=== PATIENT | female | born 1935 | race Two or more races ===

== ENCOUNTER 2018-04-26 13:58 | Inpatient (IN) | payer MEDICARE, OTHER ==
[~2018-04-26] VITALS: Ht 144.8 cm; Wt 78.5 kg
--- NOTE | 2018-04-26 13:58 | NUR ---
BIB DAUGHTER W WORSENING COUGH AND CHEST CONGESTION,SEEN AT AN URGENT CARE 3 WEEKS AGO, TO ER BED 4, CHANGED TO GOWCharmaine, HOOKED TO MONITOR, AWAITING MD ALVA
--- NOTE | 2018-04-26 14:48 | NUR ---
DR BOURNE AT BEDSIDE
[2018-04-26 15:00] LABS: BASOPHILS % (AUTO) 0.1 % (0.0-2.0); HEMATOCRIT 33 % (33-45); HEMOGLOBIN 11.2 g/dL (11.5-14.8); LYMPHOCYTES # (AUTO) 0.5 /CMM (0.8-4.8); LYMPHOCYTES % (AUTO) 6.3 % (20.0-44.0); MEAN CORPUSCULAR HGB CONC 34 g/dl (31.0-36.0); MEAN CORPUSCULAR VOLUME 97 fL (82-100); MONOCYTES # (AUTO) 0.5 /CMM (0.1-1.30); MONOCYTES % (AUTO) 6.7 % (2.0-12.0); NEUTROPHILS # (AUTO) 6.6 /CMM (1.8-8.9); NEUTROPHILS % (AUTO) 85.9 % (43.0-81.0); PLATELET COUNT (AUTO) 142 /CMM (150-450); RED BLOOD CELL COUNT(AUTO) 3.38 MIL/uL (4.0-5.2); WHITE BLOOD COUNT (AUTO) 7.6 K/uL (4.3-11.0)
[2018-04-26] MEDS ORDERED: ALBUTEROL FS 2.5 MG/3 ML VIAL.NEB ONE (15:00)
[2018-04-26] MEDS ORDERED: ALBUTEROL FS 2.5 MG/3 ML VIAL.NEB NEB ONE (15:00)
[2018-04-26] MEDS ORDERED: IPRATROPIUM NEB FS 0.5 MG/2.5 ML AMPUL.NEB ONE (15:00)
[2018-04-26] MEDS ORDERED: IPRATROPIUM NEB FS 0.5 MG/2.5 ML AMPUL.NEB NEB ONE (15:00)
[2018-04-26 15:19] LABS: ALANINE AMINOTRANSFERASE 19 U/L (12-78); ALBUMIN 2.9 g/dL (3.4-5.0); ALKALINE PHOSPHATASE 85 U/L (46-116); ASPARTATE AMINOTRANSFERASE 25 U/L (15-37); B-TYPE NATRIURETIC PEPTIDE 1410 PG/ML (0-125); BILIRUBIN,DIRECT 0.2 mg/dL (0.0-0.2); BILIRUBIN,TOTAL 0.8 mg/dL (0.2-1.0); CALCIUM, SERUM 8.4 mg/dL (8.5-10.1); CARBON DIOXIDE 23 mmol/L (21-32); CHLORIDE 88 mmol/L (98-107); CREATININE 1.4 mg/dL (0.6-1.3); GLUCOSE 203 mg/dL (74-106); POTASSIUM 4.5 mmol/L (3.5-5.1); TOTAL PROTEIN, SERUM 6.7 g/dL (6.4-8.2); UREA NITROGEN, BLOOD 32 mg/dL (7-18)
[2018-04-26] MEDS ORDERED: AMLO5TAB9 PO (15:19)
[2018-04-26] MEDS ORDERED: CELE-85 PO (15:19)
[2018-04-26] MEDS ORDERED: TELM80TA9 PO ×2 (15:19→17:26)
[2018-04-26] MEDS ORDERED: LEVO50TA8 PO (15:19)
[2018-04-26] MEDS ORDERED: METO-356 PO (15:19)
[2018-04-26] MEDS ORDERED: FLUT1DIS3 IH (15:19)
[2018-04-26] MEDS ORDERED: SITA100T PO (15:19)
[2018-04-26] MEDS ORDERED: RANO500T3 PO (15:19)
[2018-04-26] MEDS ORDERED: PREG100C PO (15:19)
[2018-04-26] MEDS ORDERED: GLIM1TAB2 PO (15:19)
[2018-04-26] MEDS ORDERED: DEXL60CA3 PO (15:19)
[2018-04-26] MEDS ORDERED: FURO40TA5 PO ×2 (15:19→17:26)
[2018-04-26] MEDS ORDERED: ROSU10TA28 PO (15:19)
[2018-04-26] MEDS ORDERED: POTA8TAB8 PO (15:19)
[2018-04-26] MEDS ORDERED: MONT10TA22 PO (15:19)
[2018-04-26] MEDS ORDERED: HYDR-3026 PO (15:19)
[2018-04-26 15:20] LABS: SODIUM SERUM 120 mmol/L (136-145)
[2018-04-26 15:21] LABS: ABG BASE EXCESS -1.3 mmol/L; ABG OXYGEN SATURATION 80.8 % (92.0-98.5); ABG PCO2 42.5 mmHg (35.0-45.0); ABG PO2 46.6 mmHg (75.0-100.0); COHb 0.8 % (0.5-1.5); MetHb 0.4 % (0.0-1.5); O2Hb 79.8 % (94.0-97.0); SITE, ABG LEFT ARM; VENT MODE, BG nasal cannula
--- NOTE | 2018-04-26 16:12 | NUR ---
Called nursing solid waste facility supervisor and requested a tele bed for this pt.
--- NOTE | 2018-04-26 16:13 | NUR ---
Called the epic group for panel call and Dr. Ariza was paged
[2018-04-26] MEDS ORDERED: FUROSEMIDE 20 MG/2 ML VIAL ONE (16:28)
[2018-04-26 16:30] VITALS: BP 124/87
[2018-04-26] MEDS ORDERED: FUROSEMIDE 20 MG/2 ML VIAL IV ONE (16:30)
--- NOTE | 2018-04-26 16:42 | NUR ---
Pt is assigned to [facility]#:116-2, DX: CHF & hyponatremia, and accepting MD: Dr. Ariza.
[2018-04-26] MEDS ORDERED: FLUTICASONE/SALMETEROL DISKUS IH SCH (17:00)
[2018-04-26] MEDS ORDERED: hydrOXYzine PAMOATE 25 MG CAPSULE PO PRN (17:00)
--- NOTE | 2018-04-26 17:23 | NUR ---
REPORT GIVEN TO SOON RN OF TELEMETRY UNIT
[2018-04-26] MEDS ORDERED: TELM1TAB6 PO (17:26)
[2018-04-26] MEDS ORDERED: LORA10TA7 PO (17:26)
[2018-04-26] MEDS ORDERED: TIOT4MIS5 IH (17:26)
[2018-04-26] MEDS ORDERED: FERR325T23 PO (17:26)
--- NOTE | 2018-04-26 18:05 | NUR ---
RN NOTE PT ARRIVED FROM ER ON BED, AOX4, SOUTH KOREAN/TURKMEN SPEAKING, SOB, ON NC 2.0 L/MIN, DRY COUGH, IV SITE IN PLACE LEFT FOREARM, 22 G HL C/D/I, ON FOAMITE MIXER SR 70S, VS STABLE, CO PAIN FROM COUGH, ABLE TO AMBULATE. SAFETY MEASURES IN PLACE, CALL LIGHT WITHIN REACH. WILL ENDORSE TO PEDIATRIC NEPHROLOGIST NURSE FOR BENIGNO.
[2018-04-26] MEDS ORDERED: ZOLPIDEM TARTRATE 5 MG TABLET PO PRN (18:30)
[2018-04-26] MEDS ORDERED: MAG HYDROX/AL HYDROX/SIMETH 30 ML UDC PO PRN (18:30)
[2018-04-26] MEDS ORDERED: MAGNESIUM HYDROXIDE 30 ML UDC PO PRN (18:30)
[2018-04-26] MEDS ORDERED: Z GUARD REMEDY 2 OZ OINT TP PRN (18:30)
[2018-04-26] MEDS ORDERED: ONDANSETRON HCL/PF 4 MG/2 ML VIAL IVP PRN (18:30)
[2018-04-26] MEDS ORDERED: HYDROCODONE/APAP 5/325MG 1 EACH TABLET PO PRN (18:30)
[2018-04-26] MEDS ORDERED: ACETAMINOPHEN 325 MG TABLET PO PRN (18:30)
[2018-04-26] MEDS: PREGABALIN 100 MG CAPSULE PO SCH (18:34)
[2018-04-26] MEDS ORDERED: TIOTROPIUM BROMIDE IH SCH (19:30)
[2018-04-26] MEDS ORDERED: FUROSEMIDE 40 MG/4 ML VIAL IV SCH (19:30)
[2018-04-26] MEDS: methylPREDNISolone SOD SUCC 40 MG/ML VIAL IV SCH (19:55)
[2018-04-26 20:00] VITALS: BP 130/73
[2018-04-26] MEDS ORDERED: INSULIN REGULAR, HUMAN 100 UNIT/ML 3 ML VIAL SQ PRN ×2 (20:00→23:30)
[2018-04-26] MEDS ORDERED: *INSULIN REGULAR(HUMULIN R)HUM 100 UNIT/ML VIAL SQ PRN (20:00)
[2018-04-26] MEDS ORDERED: DEXTROSE 50%-WATER 50 ML DISP.SYRIN IV PRN ×2 (20:00→23:30)
[2018-04-26] MEDS: BLOOD SUGAR DIAGNOSTIC 1 EACH STRIP IN SCH ×2 (20:07→22:21)
--- NOTE | 2018-04-26 20:08 | NUR ---
RN NOTE PATIENT IS ALERT/ORIENTED X 4, BS 156, REFUSED INSULIN, EXPLAINED ALL RISKS AND BENEFITS, STILL REFUSED, MD IS AWARE, CHARGE NURSE IS AWARE
[2018-04-26] MEDS: IPRATROPIUM NEB FS 0.5 MG/2.5 ML AMPUL.NEB NEB SCH (21:52)
[2018-04-26] MEDS: MONTELUKAST SODIUM (10MG) 10 MG TABLET PO SCH (22:21)
[2018-04-27] VITALS: BP 122/61
[2018-04-27 04:00] VITALS: BP 132/79
--- NOTE | 2018-04-27 06:50 | NUR ---
RN NOTE PATIENT REMAINED STABLE DURING MY SHIFT, NO RESPIRATORY DISTRESS NOTED, CONTINUE TO MONITOR STRICT INTAKE AND OUTPUT, ALL SAFETY MEASURES TAKEN, PROVIDED BEDSIDE REPORT TO AM NURSE
--- NOTE | 2018-04-27 07:00 | NUR ---
NURSE NAVIGATOR OPENING NOTES RECEIVED PT LYING ON THE BED.ALERT/ORIENTED X3,BOTSWANAN SPEAKING PT.ON TELE HR IS 70'S WITH SR.ON 2L O2 VIA NC,TOLERATING WELL.NO SOB AND ACUTE DISTRESS NOTED.IV LINE IS ON LEFT FA G22,SITE IS CLEAN,DRY AND INTACT.NO INFILTRATION NOTED.SAFETY IS MAINTAINED AT ALL TIMES.BED IS IN LOW POSITION AND LOCKED.CALL LIGHT IS WITHIN REACH.WILL CONTINUE TO MONITOR THE PT CLOSELY.
[2018-04-27 07:08] LABS: HEMATOCRIT 32 % (33-45); HEMOGLOBIN 10.8 g/dL (11.5-14.8); LYMPHOCYTES # (AUTO) 0.5 /CMM (0.8-4.8); LYMPHOCYTES % (AUTO) 8.3 % (20.0-44.0); MEAN CORPUSCULAR HGB CONC 34 g/dl (31.0-36.0); MEAN CORPUSCULAR VOLUME 96 fL (82-100); MONOCYTES # (AUTO) 0.1 /CMM (0.1-1.30); MONOCYTES % (AUTO) 1.5 % (2.0-12.0); NEUTROPHILS # (AUTO) 5.3 /CMM (1.8-8.9); NEUTROPHILS % (AUTO) 90.2 % (43.0-81.0); PLATELET COUNT (AUTO) 149 /CMM (150-450); RED BLOOD CELL COUNT(AUTO) 3.34 MIL/uL (4.0-5.2); WHITE BLOOD COUNT (AUTO) 5.9 K/uL (4.3-11.0)
[2018-04-27 07:25] LABS: ALANINE AMINOTRANSFERASE 19 U/L (12-78); ALBUMIN 2.8 g/dL (3.4-5.0); ALKALINE PHOSPHATASE 83 U/L (46-116); ASPARTATE AMINOTRANSFERASE 25 U/L (15-37); BILIRUBIN,TOTAL 0.7 mg/dL (0.2-1.0); CALCIUM, SERUM 8.7 mg/dL (8.5-10.1); CARBON DIOXIDE 22 mmol/L (21-32); CHLORIDE 89 mmol/L (98-107); CREATININE 1.2 mg/dL (0.6-1.3); GLUCOSE 190 mg/dL (74-106); MAGNESIUM 1.8 mg/dL (1.8-2.4); PHOSPHORUS 4.8 mg/dL (2.5-4.9); POTASSIUM 4.4 mmol/L (3.5-5.1); SODIUM SERUM 124 mmol/L (136-145); TOTAL PROTEIN, SERUM 6.6 g/dL (6.4-8.2); UREA NITROGEN, BLOOD 31 mg/dL (7-18)
--- NOTE | 2018-04-27 07:40 | NUR ---
BASKETBALL COMMENTATOR NOTES BS CHECKED IT IS 193,REFUSED TO TAKE INSULIN.
[2018-04-27] MEDS: BLOOD SUGAR DIAGNOSTIC 1 EACH STRIP IN SCH ×4 (07:50→21:19)
[2018-04-27 07:53] LABS: CHOLESTEROL 120 mg/dL (<200); HDL CHOLESTEROL 57 mg/dL (40-60); LDL 53 mg/dL (0-99); THYROID STIMULATING HORMONE 0.784 uIU/mL (0.358-3.74); TRIGLYCERIDES 54 mg/dL (30-150)
[2018-04-27 08:00] VITALS: BP 135/72
[2018-04-27] MEDS: IPRATROPIUM NEB FS 0.5 MG/2.5 ML AMPUL.NEB NEB SCH ×3 (08:05→20:06)
[2018-04-27] MEDS: LEVOTHYROXINE SODIUM 50 MCG TABLET PO SCH (08:16)
[2018-04-27] MEDS: PANTOPRAZOLE 40 MG TABLET.DR PO SCH (08:16)
[2018-04-27] MEDS: METOPROLOL SUCCINATE 25 MG TAB.SR.24H PO SCH (08:46)
[2018-04-27] MEDS: GLIMEPIRIDE 1 MG TABLET PO SCH (08:46)
[2018-04-27] MEDS: LINAGLIPTIN 5 MG TABLET PO SCH (08:47)
[2018-04-27] MEDS: methylPREDNISolone SOD SUCC 40 MG/ML VIAL IV SCH ×3 (08:47→17:19)
[2018-04-27] MEDS: AMLODIPINE BESYLATE 5 MG TABLET PO SCH (08:47)
[2018-04-27] MEDS: PREGABALIN 100 MG CAPSULE PO SCH ×2 (08:47→17:19)
[2018-04-27] MEDS ORDERED: FLUTICASONE/VILANTEROL 1 EACH BLST.W.DEV IH SCH (09:00)
[2018-04-27] MEDS ORDERED: ENOXAPARIN SODIUM 40 MG/0.4 ML DISP.SYRIN SQ SCH (09:00)
[2018-04-27] MEDS ORDERED: Medication Not On Formulary EA (Sitagliptin Phosphate (Januvia) 100 MG) PO SCH (09:00)
[2018-04-27] MEDS ORDERED: PANTOPRAZOLE 40 MG TABLET.DR PO SCH (09:00)
[2018-04-27] MEDS ORDERED: LEVALBUTEROL HCL NEB 1.25 MG/0.5 ML VIAL.NEB IH SCH (09:00)
[2018-04-27] MEDS: ASPIRIN 81 MG TAB.CHEW PO SCH (09:28)
[2018-04-27] MEDS: FUROSEMIDE 40 MG/4 ML VIAL IV SCH ×3 (09:29→17:19)
[2018-04-27] MEDS: ENOXAPARIN SODIUM 30 MG/0.3 ML DISP.SYRIN SQ SCH (09:39)
[2018-04-27 09:57] LABS: IRON, SERUM 19 ug/dl (50-175); TOTAL IRON BINDING CAPACITY 198 ug/dl (250-450)
[2018-04-27 10:26] LABS: CHOLESTEROL 122 mg/dL (<200); FERRITIN 757 ng/mL (8-388); HDL CHOLESTEROL 56 mg/dL (40-60); LDL 53 mg/dL (0-99); THYROID STIMULATING HORMONE 0.725 uIU/mL (0.358-3.74); TRIGLYCERIDES 55 mg/dL (30-150)
[2018-04-27] MEDS: ACETYLCYSTEINE 10% SOLN 400 MG/4 ML VIAL NEB SCH ×2 (11:21→16:08)
[2018-04-27 12:00] VITALS: BP 126/68
[2018-04-27] MEDS: ALBUTEROL FS 2.5 MG/3 ML VIAL.NEB NEB SCH ×2 (13:38→20:06)
[2018-04-27] MEDS: SOD FERRIC GLUC 125 MG in IV NS 0.9% 100 ML IV SCH (14:51)
[2018-04-27] MEDS ORDERED: ALBUTEROL FS 2.5 MG/3 ML VIAL.NEB NEB SCH (15:30)
[2018-04-27 16:00] VITALS: BP 133/62
--- NOTE | 2018-04-27 18:43 | NUR ---
ELECTION JUDGE CLOSING NOTES PT IS LYING ON BED.ALERT/ORIENTED X4.TOLERATING WELL ON 2L O2 VIA NC.RESPIRATION IS EVEN AND NONLABORED.ENDORSED TO DRIVERS LICENSE EXAMINER RN FOR BENIGNO.
[2018-04-27 20:00] VITALS: BP 160/89
[2018-04-27] MEDS ORDERED: Rosuvastatin Calcium 10 MG PO SCH (20:00)
[2018-04-27] MEDS: LOSARTAN POTASSIUM 50 MG TABLET PO SCH (20:44)
[2018-04-27] MEDS: MONTELUKAST SODIUM (10MG) 10 MG TABLET PO SCH (21:19)
--- NOTE | 2018-04-27 22:00 | NUR ---
RN NOTE PATIENT IS ALERT/ORIENTED X4, BS 268, REFUSED INSULIN, EXPLAINED ALL RISKS AND BENEFITS, STILL REFUSED, MD IS AWARE, CHARGE NURSE IS AWARE
[2018-04-28] VITALS: BP 145/75
[2018-04-28] MEDS: ACETYLCYSTEINE 10% SOLN 400 MG/4 ML VIAL NEB SCH ×3 (00:09→13:16)
[2018-04-28] MEDS: ALBUTEROL FS 2.5 MG/3 ML VIAL.NEB NEB SCH ×3 (00:12→13:16)
[2018-04-28] MEDS: IPRATROPIUM NEB FS 0.5 MG/2.5 ML AMPUL.NEB NEB SCH ×3 (00:12→13:16)
[2018-04-28 04:00] VITALS: BP 129/65
[2018-04-28 05:56] LABS: ALANINE AMINOTRANSFERASE 21 U/L (12-78); ALBUMIN 2.8 g/dL (3.4-5.0); ALKALINE PHOSPHATASE 75 U/L (46-116); ASPARTATE AMINOTRANSFERASE 26 U/L (15-37); BILIRUBIN,TOTAL 0.5 mg/dL (0.2-1.0); CALCIUM, SERUM 8.5 mg/dL (8.5-10.1); CARBON DIOXIDE 26 mmol/L (21-32); CHLORIDE 92 mmol/L (98-107); CREATININE 1.3 mg/dL (0.6-1.3); GLUCOSE 246 mg/dL (74-106); MAGNESIUM 1.6 mg/dL (1.8-2.4); PHOSPHORUS 3.8 mg/dL (2.5-4.9); POTASSIUM 3.3 mmol/L (3.5-5.1); SODIUM SERUM 130 mmol/L (136-145); TOTAL PROTEIN, SERUM 6.2 g/dL (6.4-8.2); UREA NITROGEN, BLOOD 37 mg/dL (7-18)
[2018-04-28 06:37] LABS: HEMATOCRIT 30 % (33-45); HEMOGLOBIN 10.1 g/dL (11.5-14.8); LYMPHOCYTES # (AUTO) 0.7 /CMM (0.8-4.8); LYMPHOCYTES % (AUTO) 7.7 % (20.0-44.0); MEAN CORPUSCULAR HGB CONC 34 g/dl (31.0-36.0); MEAN CORPUSCULAR VOLUME 96 fL (82-100); MONOCYTES # (AUTO) 0.7 /CMM (0.1-1.30); MONOCYTES % (AUTO) 7.1 % (2.0-12.0); NEUTROPHILS % (AUTO) 85.2 % (43.0-81.0); PLATELET COUNT (AUTO) 176 /CMM (150-450); WHITE BLOOD COUNT (AUTO) 9.4 K/uL (4.3-11.0)
--- NOTE | 2018-04-28 06:46 | NUR ---
RN NOTE PATIENT REMAINED STABLE DURING PAINTER HELPER SIGN, NO RESPIRATORY DISTRESS NOTED, ALL SAFETY MEASURES TAKEN, WILL PROVIDE BEDSIDE REPORT TO AM SHIFT
--- NOTE | 2018-04-28 07:30 | NUR ---
PATIENT RECEIVED IN BED ALERT NO DISTRESS NOTED , PT DENIES CHEST PAIN SKIN WARM AND DRY , TELE MONITOR SR ,VITAL SIGNS STABLE C/O SEE FLOW SHEET , BLOOD SUGSR CHECK 229 MG/DL PT REFUSED SQ INSULIN ,SR X2 UP CALL LIGHT WITH IN REACH
[2018-04-28 08:00] VITALS: BP 128/61
--- NOTE | 2018-04-28 08:00 | NUR ---
RECEIVED PATIENT IN BED BREATHING WITH MILD SOB OXYGEN 3LITER N/C ON SATURATION 98% PATIENT DENIES CHEST PAIN HEPLOCK TO LEFT FORE ARM SECURED AND FLUSHED GOOD , PT IS UP WITH MINIAL ASSIST TO BATH ROOM SR X2 UP CALL LIGHT WITH REACH
[2018-04-28] MEDS: PANTOPRAZOLE 40 MG TABLET.DR PO SCH (08:19)
[2018-04-28] MEDS: LEVOTHYROXINE SODIUM 50 MCG TABLET PO SCH ×2 (08:20→08:21)
[2018-04-28] MEDS: BLOOD SUGAR DIAGNOSTIC 1 EACH STRIP IN SCH ×2 (08:21→12:23)
[2018-04-28] MEDS: ASPIRIN 81 MG TAB.CHEW PO SCH (09:37)
[2018-04-28] MEDS: AMLODIPINE BESYLATE 5 MG TABLET PO SCH (09:38)
[2018-04-28] MEDS: PREGABALIN 100 MG CAPSULE PO SCH (09:38)
[2018-04-28] MEDS: GLIMEPIRIDE 1 MG TABLET PO SCH (09:38)
[2018-04-28] MEDS: LOSARTAN POTASSIUM 50 MG TABLET PO SCH (09:38)
[2018-04-28] MEDS: LINAGLIPTIN 5 MG TABLET PO SCH (09:38)
[2018-04-28] MEDS: methylPREDNISolone SOD SUCC 40 MG/ML VIAL IV SCH (09:39)
[2018-04-28] MEDS: METOPROLOL SUCCINATE 25 MG TAB.SR.24H PO SCH (09:39)
[2018-04-28] MEDS: ENOXAPARIN SODIUM 30 MG/0.3 ML DISP.SYRIN SQ SCH (09:40)
[2018-04-28] MEDS ORDERED: POTASSIUM CHLORIDE 20 MEQ TAB.PRT.SR PO SCH (10:30)
[2018-04-28] MEDS: POTASSIUM CHLORIDE 20 MEQ TAB.PRT.SR PO SCH ×2 (11:06→12:15)
[2018-04-28] MEDS: Magnesium 1GM/D5W 100ML PREMIX 100 ML IV SCH ×2 (11:07→12:16)
--- NOTE | 2018-04-28 11:26 | NUR ---
CHARGE NOTES TRANSFER TO MED SURG PER DR. MATTA
[2018-04-28 12:00] VITALS: BP 126/55
--- NOTE | 2018-04-28 12:24 | NUR ---
FSBS 209MG/DL PT REFUSED INSULIN DOSE
[2018-04-28] MEDS ORDERED: K PHOS NEUTRAL 250 MG TABLET PO ONE (13:00)
[2018-04-28] MEDS: SOD FERRIC GLUC 125 MG in IV NS 0.9% 100 ML IV SCH (14:00)
[2018-04-28] MEDS ORDERED: LEVO500T75 PO (15:18)
[2018-04-28 16:00] VITALS: BP 127/55
--- NOTE | 2018-04-28 16:53 | NUR ---
PT IS DISCHARGED HOME
[2018-04-29] MEDS ORDERED: predniSONE 20 MG TABLET PO SCH (09:00)
== END 2018-04-28 16:35 | disposition home or self-care (01) | DRG 291 ==
LOC: ER 14:09 → TELE1 16:45 → MEDSG1 04-28 11:05
PROVIDERS: ADMIT Internal Medicine
DX: I11.0 Hypertensive heart disease with heart failure (principal); I50.31 Acute diastolic (congestive) heart failure; J96.01 Acute respiratory failure with hypoxia; E87.1 Hypo-osmolality and hyponatremia; N17.9 Acute kidney failure, unspecified; J44.0 Chronic obstructive pulmonary disease with (acute) lower respiratory infection; J44.1 Chronic obstructive pulmonary disease with (acute) exacerbation; J20.9 Acute bronchitis, unspecified; E66.9 Obesity, unspecified; E11.9 Type 2 diabetes mellitus without complications; D64.9 Anemia, unspecified; Z79.51 Long term (current) use of inhaled steroids; Z79.899 Other long term (current) drug therapy
CPT/HCPCS: 36415; 36600; 71045-TC; 80048-TC; 80053-TC; 80061-TC; 80076-TC; 82728-TC; 82962-TC; 83540-TC; 83735-TC; 83880; 84100-TC; 84439-TC; 84443-TC; 84484-TC; 85025-TC; 87081-TC; 93307-TC; 94799-TC; G0378; J1650; J1815; J1940; J2916; J2920; J3475; J7030; Q0177

== ENCOUNTER 2022-07-26 09:10 | Emergency (ER) | payer MEDICARE, OTHER ==
[~2022-07-26] VITALS: Ht 152.4 cm; Wt 68.0 kg
[~2022-07-26 09:10] MED LIST: AMLO-212 PO; CELE-85 PO; DEXL60CA3 PO; FERR325T23 PO; FLUT1DIS3 IH; FURO40TA5 PO; GLIM1TAB18 PO; HYDR-500 PO; LEVO500T23 PO; LEVO50TA8 PO; LORA10TA7 PO; METO25TA4 PO; MONT10TA22 PO; POTA8TAB8 PO; PREG100C PO; RANO500T3 PO; ROSU10TA29 PO; SITA100T PO; TELM1TAB6 PO; TELM80TA9 PO; TIOT4MIS5 IH
--- NOTE | 2022-07-26 09:26 | NUR ---
BIB FROM HOME FOR RLQ ABD PAIN SINCE YESTERDAY. A/O X 3, ABLE TO MAKE NEEDS KNOWN, ANGOLAN SPEAKING, TOLERATING WELL ON ROOM AIR. LAST BM YESTERDAY.
--- NOTE | 2022-07-26 09:35 | NUR ---
BLOOD SAMPLES OBTAINED
[2022-07-26] MEDS ORDERED: MORPHINE SULFATE INJ 2 MG/ML DISP.SYRIN ONE (09:58)
[2022-07-26] MEDS ORDERED: MORPHINE SULFATE INJ 2 MG/ML DISP.SYRIN IV ONE (10:00)
[2022-07-26] MEDS ORDERED: ACETAMINOPHEN ES 500 MG TABLET ONE ×2 (10:41→10:43)
[2022-07-26 10:57] LABS: BASOPHILS % (AUTO) 0.4 % (0.0-2.0); EOSINOPHILS % (AUTO) 6.1 % (0.0-6.0); HEMATOCRIT 33 % (33-45); HEMOGLOBIN 11.1 g/dL (11.5-14.8); LYMPHOCYTES # (AUTO) 1.6 K/uL (0.8-4.8); MEAN CORPUSCULAR HGB CONC 33 g/dl (31.0-36.0); MEAN CORPUSCULAR VOLUME 98 fL (82-100); MONOCYTES # (AUTO) 0.8 K/uL (0.1-1.30); MONOCYTES % (AUTO) 12.2 % (2.0-12.0); NEUTROPHILS # (AUTO) 3.5 K/uL (1.8-8.9); NEUTROPHILS % (AUTO) 55.3 % (43.0-81.0); PLATELET COUNT (AUTO) 158 K/uL (150-450); RED BLOOD CELL COUNT(AUTO) 3.42 MIL/uL (4.0-5.2); WHITE BLOOD COUNT (AUTO) 6.3 K/uL (4.3-11.0)
[2022-07-26] MEDS ORDERED: ACETAMINOPHEN ES 500 MG TABLET PO ONE (11:00)
[2022-07-26 11:10] LABS: CALCIUM, SERUM 8.8 mg/dL (8.5-10.1); CARBON DIOXIDE 26 mmol/L (21-32); CHLORIDE 101 mmol/L (98-107); GLUCOSE 124 mg/dL (74-106); POTASSIUM 4.1 mmol/L (3.5-5.1); SODIUM SERUM 132 mmol/L (136-145); UREA NITROGEN, BLOOD 18 mg/dL (7-18)
[2022-07-26 11:19] LABS: ALANINE AMINOTRANSFERASE 21 U/L (12-78); ALBUMIN 3.5 g/dL (3.4-5.0); ALKALINE PHOSPHATASE 80 U/L (46-116); ASPARTATE AMINOTRANSFERASE 24 U/L (15-37); BILIRUBIN,DIRECT 0.2 mg/dL (0.0-0.2); BILIRUBIN,TOTAL 0.5 mg/dL (0.2-1.0); LIPASE 63 U/L (73-393); TOTAL PROTEIN, SERUM 6.6 g/dL (6.4-8.2)
--- NOTE | 2022-07-26 11:51 | NUR ---
URINE SAMPLE OBTAINED
[2022-07-26] MEDS ORDERED: BISA-79 PO (11:54)
--- NOTE | 2022-07-26 12:05 | NUR ---
Patient discharged to home in stable condition. Written and verbal after care instructions given. Patient verbalizes understanding of instruction.IV removed. Catheter intact and site benign. Pressure and 4x4 applied to site. No bleeding noted.
[2022-07-26 12:06] VITALS: BP 151/62
[2022-07-26 12:12] LABS: BILIRUBIN,URINE Negative (NEGATIVE); COLOR,URINE YELLOW (YELLOW); LEUKOCYTE ESTERASE ,URINE Negative (NEGATIVE); NITRITE, URINE Negative (NEGATIVE); PROTEIN,URINE Negative (NEGATIVE); UGLUCOSE Negative (NEGATIVE); UROBILINOGEN,URINE 0.2 EU/dL (0.2)
== END 2022-07-26 12:06 | disposition home or self-care (01) ==
LOC: ER 09:20
DX: R10.84 Generalized abdominal pain (principal); I10 Essential (primary) hypertension; E11.9 Type 2 diabetes mellitus without complications; Z79.899 Other long term (current) drug therapy
CPT/HCPCS: 36415; 71045-TC; 80048-TC; 80076-TC; 83690-TC; 84484-TC; 85025-TC; 87086-TC; J2270

== ENCOUNTER 2022-07-31 19:02 | Emergency (ER) | payer MEDICARE, OTHER ==
[~2022-07-31] VITALS: Ht 144.8 cm; Wt 66.2 kg
[~2022-07-31 19:02] MED LIST changes: +BISA-79 PO
--- NOTE | 2022-07-31 19:20 | NUR ---
X-RAY TECH AT BEDSIDE
--- NOTE | 2022-07-31 20:12 | NUR ---
[id number] HOME C/O L SHOULDER AND BACK PAIN S/P FALLING OFF HER BED NOTED SKIN TEAR TO LFA.
[2022-07-31] MEDS ORDERED: TDAP [DIPH/PERTUSSIS/TET] 0.5 ML VIAL IM ONE ×2 (21:57→22:00)
--- NOTE | 2022-07-31 22:00 | NUR ---
SLING APPLIED TO L SHOULDER
--- NOTE | 2022-07-31 22:11 | NUR ---
Patient discharged to home in stable condition. Written and verbal after care instructions given. Patient verbalizes understanding of instruction.
[2022-07-31 22:13] VITALS: BP 135/70
== END 2022-07-31 22:10 | disposition home or self-care (01) ==
LOC: ER 19:04
DX: S42.292A Other displaced fracture of upper end of left humerus, initial encounter for closed fracture (principal); S51.012A Laceration without foreign body of left elbow, initial encounter; F03.90 Unspecified dementia, unspecified severity, without behavioral disturbance, psychotic disturbance, mood disturbance, and anxiety; I10 Essential (primary) hypertension; E11.9 Type 2 diabetes mellitus without complications; Z79.899 Other long term (current) drug therapy; W01.0XXA Fall on same level from slipping, tripping and stumbling without subsequent striking against object, initial encounter; Y93.89 Activity, other specified; Y92.89 Other specified places as the place of occurrence of the external cause; Y99.8 Other external cause status
CPT/HCPCS: 73030-TC; 73060-TC; 90715

== ENCOUNTER 2022-08-06 09:27 | Inpatient (IN) | payer MEDICARE, OTHER ==
[2022-08-05 21:00] VITALS: BP 151/63
[~2022-08-06] VITALS: Ht 152.4 cm; Wt 59.9 kg
--- NOTE | 2022-08-06 09:45 | NUR ---
MOVE SHEET SUBMITTED.
[2022-08-06] MEDS ORDERED: IV NS 0.9% 1,000 ML BAG IV ONE (10:00)
--- NOTE | 2022-08-06 10:36 | NUR ---
COVID swab obtained and sent to lab
--- NOTE | 2022-08-06 10:57 | NUR ---
Pt repositioned for comfort. Pt provided with blankets.
[2022-08-06 11:35] LABS: BASOPHILS % (AUTO) 0.2 % (0.0-2.0); EOSINOPHILS % (AUTO) 0.8 % (0.0-6.0); HEMATOCRIT 33 % (33-45); LYMPHOCYTES # (AUTO) 1.1 K/uL (0.8-4.8); LYMPHOCYTES % (AUTO) 6.7 % (20.0-44.0); MEAN CORPUSCULAR HGB CONC 31 g/dl (31.0-36.0); MEAN CORPUSCULAR VOLUME 108 fL (82-100); MONOCYTES # (AUTO) 1.2 K/uL (0.1-1.30); MONOCYTES % (AUTO) 7.5 % (2.0-12.0); NEUTROPHILS # (AUTO) 13.7 K/uL (1.8-8.9); NEUTROPHILS % (AUTO) 84.8 % (43.0-81.0); PLATELET COUNT (AUTO) 173 K/uL (150-450); RED BLOOD CELL COUNT(AUTO) 3.02 MIL/uL (4.0-5.2); WHITE BLOOD COUNT (AUTO) 16.2 K/uL (4.3-11.0)
--- NOTE | 2022-08-06 11:37 | NUR ---
PT REQUESTING FOOD. DR. WYNN MADE AWARE AND PT IS TO REMAIN NPO. PT MADE AWARE AND VERBALIZED UNDERSTANDING
--- NOTE | 2022-08-06 12:09 | NUR ---
LAB CALLED AND REPORTS THAT THEY WILL FOLLOW UP ON UNRESULTED BLOODWORK
--- NOTE | 2022-08-06 12:11 | NUR ---
LAB CALLED AND WILL SEND SOMEONE TO REDRAW LAB WORK
[2022-08-06] MEDS ORDERED: MAG HYDROX/AL HYDROX/SIMETH 30 ML UDC PO PRN (12:30)
[2022-08-06] MEDS ORDERED: ACETAMINOPHEN 325 MG TABLET PO PRN (12:30)
[2022-08-06] MEDS ORDERED: ONDANSETRON HCL/PF 4 MG/2 ML VIAL IVP PRN (12:30)
[2022-08-06] MEDS ORDERED: Z GUARD REMEDY 4 OZ OINT TP PRN (12:30)
[2022-08-06] MEDS ORDERED: MAGNESIUM HYDROXIDE 30 ML UDC PO PRN (12:30)
[2022-08-06 12:47] LABS: ALANINE AMINOTRANSFERASE 15 U/L (12-78); ALBUMIN 2.9 g/dL (3.4-5.0); ALKALINE PHOSPHATASE 95 U/L (46-116); ASPARTATE AMINOTRANSFERASE 17 U/L (15-37); BILIRUBIN,DIRECT 0.2 mg/dL (0.0-0.2); BILIRUBIN,TOTAL 0.6 mg/dL (0.2-1.0); CALCIUM, SERUM 8.8 mg/dL (8.5-10.1); CARBON DIOXIDE 16 mmol/L (21-32); CHLORIDE 109 mmol/L (98-107); CREATININE 1.1 mg/dL (0.6-1.3); GLUCOSE 138 mg/dL (74-106); POTASSIUM 4.6 mmol/L (3.5-5.1); SODIUM SERUM 138 mmol/L (136-145); TOTAL PROTEIN, SERUM 5.8 g/dL (6.4-8.2); UREA NITROGEN, BLOOD 30 mg/dL (7-18)
--- NOTE | 2022-08-06 13:00 | NUR ---
Pt has regular diet ordered, pt provided with meal tray and water
--- NOTE | 2022-08-06 13:22 | NUR ---
Ricardo mercado in [facility] - 08/06/22 at 1329 by MAE BED GIVEN 119-1
--- NOTE | 2022-08-06 13:29 | NUR ---
BED GIVEN 113-1
--- NOTE | 2022-08-06 13:39 | NUR ---
Report given to Sandra PARTIDA on the first floor
[2022-08-06 14:19] VITALS: BP 107/51
[2022-08-06] MEDS ORDERED: ICOS1CAP PO (15:55)
[2022-08-06] MEDS ORDERED: LINA290C PO (15:55)
[2022-08-06] MEDS ORDERED: FERR325T23 PO (15:59)
[2022-08-06] MEDS ORDERED: METO25TA4 PO (15:59)
[2022-08-06 17:00] VITALS: BP 134/69
[2022-08-06 17:49] LABS: THYROID STIMULATING HORMONE 2.568 uIU/mL (0.358-3.74)
--- NOTE | 2022-08-06 19:45 | NUR ---
RN OPENING NOTE PATIENT AWAKE IN BED; DAUGHTER AT BEDSIDE. A/OX4. NO S/S OF DISTRESS, BREATHING WITHOUT DIFFICULTY ON ROOM AIR. RAC #20 INTACT AND PATENT W/ NS 100ML/HR. TELE READS SR 82. SAFETY MEASURES IN PLACE: BED LOCKED AND AT LOWEST POSITION, RAILS UP X2, CALL QUACH WITHIN REACH. BED ALARM ON. WILL CONTINUE TO MONITOR PATIENT.
[2022-08-06] MEDS: IV NS 0.9% 1,000 ML IV PRN (19:54)
--- NOTE | 2022-08-06 19:57 | NUR ---
PARTS CLEANER NOTE PT ALERT AND ORIENTED X3-4. SOUTH KOREAN SPEAKING UNDERSTANDS SOME BOTSWANAN. PT ON TELE MONITOR SINUS RHYTM. PT HAS R IV INTACT, PATENT AND FLUSHING WELL. NO SIGNS OF PAIN OR DISCOMFORT NOTED AT THIS TIME. PT ON ROOM AIR. PT NOTED TO HAVE LEFT ARM SLING, LEFT HUMERAL FRATURE. GRANDSON AT BEDSIDE. ALL SAFETY MEASURS IN PLACE. CALL LIGHT WITHIN REACH. BED LOCKED AT LOWEST POSITION. SIDE RAILS UP X2. BED ALARM ON
--- NOTE | 2022-08-06 20:00 | NUR ---
VETERINARY TECHNOLOGY INSTRUCTOR NOTE PT ALERT AND ORIENTED X3-4. TAJIK SPEAKING UNDERSTANDS SOME MALAY. PT ON TELE MONITOR SINUS RHYTM. PT HAS R IV INTACT, PATENT AND FLUSHING WELL. NO SIGNS OF PAIN OR DISCOMFORT NOTED AT THIS TIME. PT ON ROOM AIR TOLERATING WELL ABOVE 93%. PT NOTED TO HAVE LEFT ARM SLING, LEFT HUMERAL FRACTURE. GRANDSON AND DAUGHTER AT BEDSIDE. ALL SAFETY MEASURES IN PLACE. CALL LIGHT WITHIN REACH. BED LOCKED AT LOWEST POSITION. SIDE RAILS UP X2. BED ALARM ON. ENDORSED TO BUSINESS QUALITY ASSURANCE ANALYST RN FOR CONTUITY OF CARE Addendum: 08/06/22 at 2001 by PACO DISLA RN PT NOT DISCHARGED. CHART ERROR. THIS IS PT CLOSING NOTE
--- NOTE | 2022-08-06 20:30 | NUR ---
RN NOTE PATIENT COMPLAINED OF PAIN 10/10 AT BACK. PATIENT'S DAUGHTER HAS POA AND STATED, "NO PAIN MEDS". AFTER DISCUSSING WITH DAUGHTER ALTERNATIVES, PATIENT AND PATIENT'S DAUGHTER AGREED TO TRAMADOL. ON-CALL, VANESA BUTLER. ORDER GIVEN FOR TRAMADOL 50MG Q6HR PRN PAIN. PATIENT STABLE; WILL CONTINUE TO MONITOR PATIENT.
[2022-08-06 21:00] VITALS: BP 150/71
[2022-08-06] MEDS ORDERED: TRAMADOL HCL 50 MG TABLET PO PRN (21:00)
[2022-08-06] MEDS: RANOLAZINE 500 MG TAB.ER.12H PO SCH (21:29)
[2022-08-07 01:53] VITALS: BP 150/71
[2022-08-07 05:33] VITALS: BP 143/80
[2022-08-07 06:28] LABS: BASOPHILS % (AUTO) 0.3 % (0.0-2.0); EOSINOPHILS % (AUTO) 3.1 % (0.0-6.0); HEMATOCRIT 29 % (33-45); HEMOGLOBIN 9.6 g/dL (11.5-14.8); LYMPHOCYTES # (AUTO) 1.7 K/uL (0.8-4.8); LYMPHOCYTES % (AUTO) 16.4 % (20.0-44.0); MEAN CORPUSCULAR HGB CONC 33 g/dl (31.0-36.0); MEAN CORPUSCULAR VOLUME 99 fL (82-100); MONOCYTES # (AUTO) 1.2 K/uL (0.1-1.30); MONOCYTES % (AUTO) 12.3 % (2.0-12.0); NEUTROPHILS # (AUTO) 6.8 K/uL (1.8-8.9); NEUTROPHILS % (AUTO) 67.9 % (43.0-81.0); PLATELET COUNT (AUTO) 189 K/uL (150-450); RED BLOOD CELL COUNT(AUTO) 2.91 MIL/uL (4.0-5.2); WHITE BLOOD COUNT (AUTO) 10.1 K/uL (4.3-11.0)
[2022-08-07] MEDS: IV NS 0.9% 1,000 ML IV PRN (06:29)
--- NOTE | 2022-08-07 06:35 | NUR ---
RN CLOSING NOTE PATIENT AWAKE IN BED. A/OX4. NO S/S OF DISTRESS, BREATHING WITHOUT DIFFICULTY ON ROOM AIR. RAC #20 INTACT AND PATENT W/ NS 100ML/HR. TELE READS SR 91. SAFETY MEASURES IN PLACE: BED LOCKED AND AT LOWEST POSITION, RAILS UP X2, CALL QUACH WITHIN REACH, BED ALARM ON. WILL ENDORSE TO NEXT SHIFT FOR BENIGNO.
[2022-08-07 06:39] LABS: ALANINE AMINOTRANSFERASE 16 U/L (12-78); ALBUMIN 2.7 g/dL (3.4-5.0); ALKALINE PHOSPHATASE 88 U/L (46-116); ASPARTATE AMINOTRANSFERASE 14 U/L (15-37); BILIRUBIN,TOTAL 0.6 mg/dL (0.2-1.0); CALCIUM, SERUM 8.8 mg/dL (8.5-10.1); CARBON DIOXIDE 20 mmol/L (21-32); CHLORIDE 108 mmol/L (98-107); CREATININE 0.8 mg/dL (0.6-1.3); GLUCOSE 126 mg/dL (74-106); MAGNESIUM 1.5 mg/dL (1.8-2.4); PHOSPHORUS 3.8 mg/dL (2.5-4.9); POTASSIUM 3.6 mmol/L (3.5-5.1); SODIUM SERUM 138 mmol/L (136-145); TOTAL PROTEIN, SERUM 5.6 g/dL (6.4-8.2); UREA NITROGEN, BLOOD 20 mg/dL (7-18)
--- NOTE | 2022-08-07 07:27 | NUR ---
METER READERS SUPERVISOR OPENING NOTE PT ALERT AND ORIENTED X3-4. BELARUSIAN SPEAKING UNDERSTANDS SOME ESTONIAN. PT ON TELE MONITOR SINUS RHYTM. PT HAS R IV INTACT, PATENT AND FLUSHING WELL. NO SIGNS OF PAIN OR DISCOMFORT NOTED AT THIS TIME. PT ON ROOM AIR TOLERATING WELL ABOVE 93%. PT NOTED TO HAVE LEFT HUMERAL FRACTURE. ALL SAFETY MEASURES IN PLACE. CALL LIGHT WITHIN REACH. BED LOCKED AT LOWEST POSITION. SIDE RAILS UP X2. BED ALARM ON.
[2022-08-07] MEDS ORDERED: LEVOTHYROXINE SODIUM 100 MCG TABLET PO SCH (07:30)
[2022-08-07 09:00] VITALS: BP 132/68
[2022-08-07] MEDS ORDERED: ATORVASTATIN 40 MG TABLET PO SCH (09:00)
[2022-08-07] MEDS ORDERED: LINAGLIPTIN 5 MG TABLET PO SCH (09:00)
[2022-08-07] MEDS ORDERED: GLIMEPIRIDE 1 MG TABLET PO SCH (09:00)
[2022-08-07] MEDS ORDERED: PANTOPRAZOLE 40 MG TABLET.DR PO SCH (09:00)
--- NOTE | 2022-08-07 09:15 | NUR ---
WOUND CARE CONSULT: PT'S DAUGHTER AT BEDSIDE REFUSED ASSESSMENT FOR PT. REVIEWED CHART, NURSING DOCUMENTATION AND PHOTOS WHICH INDICATE LEFT SHOULDER AND ARM DISCOLORATION, LEFT ELBOW SKIN TEAR, SACRAL DEEP TISSUE INJURY WITH GLUTEAL CREASE OPEN SKIN, ALL PRESENT ON ADMISSION. RECOMMENDATIONS MADE FOR SKIN PROTECTION. DISCUSSED WITH NURSING STAFF. IN AGREEMENT WITH PLAN OF CARE. Addendum: 08/07/22 at 0920 by RUFUS DONOVAN WNDNU ADMISSION PHOTOS ALSO SHOW DISCOLORATION TO LOWER EXTREMITIES.
[2022-08-07] MEDS: RANOLAZINE 500 MG TAB.ER.12H PO SCH (09:22)
[2022-08-07] MEDS ORDERED: Magnesium 1GM/D5W 100ML PREMIX 100 ML IV SCH ×2 (10:00→11:00)
--- NOTE | 2022-08-07 11:53 | NUR ---
varnisher note pt left in stable condition. pt alert and oriented x3. citizen of vanuatu speaking. removed tele monitor box and iv. went over discharge instructions with pt and pt daughter, medication list, health teachings.pt and pt agreed and verbalized understanding. all belongings with patient including jewelry and dentures.escorted out by nursing staff by wheelchair.picked up by daughter.
--- NOTE | 2022-08-09 13:48 | NUR ---
RN NOTES RECEIVED A CALL FROM LABORATORY FOR BLOOD CULTURE RESULT - GRAM POSITIVE COCCI. RELAYED TO DR. PRADO, PER HIS INSTRUCTION TO GIVE DAUGHTER A CALL. AND PT NEEDS TO BE TREATED WITH IV ATB AT LEAST FOR 2 DAYS. SPOKE WITH NOÉ - DAUGHTER, RELAYED MESSAGE ADN INSTRUCTION FROM DR. PRADO, DAUGHTER REFUSED HOSPITALIZATION AND INSTEAD REQUESTED TO HAVE A COPY E MAILED TO HER AND WILL JUST GET IV ATB THROUGH HER HOME HEALTH. SPOKE WITH CASE MANAGEMENT ABOUT THE SITUATION, PER CM, PROVIDE THE PT WITH THEIR MEDICAL RECORD NUMBER AND CALL MEDICAL RECORDS TO PROVIDE THEM A COPY OF THE BLOOD CULTURE AND HAVE IT E MAILED TO THEM PROVIDED A PHONE NUMBER OF MEDICAL RECORD - [phone]
== END 2022-08-07 11:41 | disposition home or self-care (01) | DRG 309 ==
LOC: ER 09:32 → TELE1 13:34
PROVIDERS: ADMIT Internal Medicine; ATTEND Internal Medicine
DX: I49.9 Cardiac arrhythmia, unspecified (principal); I50.32 Chronic diastolic (congestive) heart failure; N17.9 Acute kidney failure, unspecified; I11.0 Hypertensive heart disease with heart failure; I25.10 Atherosclerotic heart disease of native coronary artery without angina pectoris; F03.90 Unspecified dementia, unspecified severity, without behavioral disturbance, psychotic disturbance, mood disturbance, and anxiety; Z20.822 Contact with and (suspected) exposure to COVID-19; E78.5 Hyperlipidemia, unspecified; E11.9 Type 2 diabetes mellitus without complications; Z79.84 Long term (current) use of oral hypoglycemic drugs; Z79.51 Long term (current) use of inhaled steroids; Z79.899 Other long term (current) drug therapy; J44.9 Chronic obstructive pulmonary disease, unspecified; E03.9 Hypothyroidism, unspecified; D64.9 Anemia, unspecified; Z91.81 History of falling; S42.202D Unspecified fracture of upper end of left humerus, subsequent encounter for fracture with routine healing; W18.30XD Fall on same level, unspecified, subsequent encounter
CPT/HCPCS: 36415; 70450-TC; 71045-TC; 73030-TC; 73200-TC; 80048-TC; 80053-TC; 80061-TC; 80076-TC; 82728-TC; 82962-TC; 83540-TC; 83605-TC; 83735-TC; 84100-TC; 84439-TC; 84443-TC; 84484-TC; 85025-TC; 85730-TC; 86850-TC; 87040-TC; 93307-TC; 93971-TC; 97530-TC; C9803; G0378; J7030

== ENCOUNTER 2022-08-17 13:10 | Inpatient (IN) | payer MEDICARE, OTHER ==
[~2022-08-17] VITALS: Ht 152.4 cm; Wt 60.8 kg
[~2022-08-17 13:10] MED LIST changes: -BISA-79 PO; -FLUT1DIS3 IH; -FURO40TA5 PO; -HYDR-500 PO; +ICOS1CAP PO; -LEVO500T23 PO; +LINA290C PO; -MONT10TA22 PO; -POTA8TAB8 PO; -PREG100C PO; -TELM1TAB6 PO; -TIOT4MIS5 IH
[2022-08-17] MEDS ORDERED: IV NS 0.9% 500 ML BAG IV ONE (14:00)
--- NOTE | 2022-08-17 15:07 | NUR ---
COVID SWAB OBTAINED AND SENT TO LAB
[2022-08-17] MEDS ORDERED: METO10TA3 PO (15:14)
[2022-08-17] MEDS ORDERED: ASPI-1420 PO (15:14)
[2022-08-17] MEDS ORDERED: TRAM50TA2 PO (15:14)
[2022-08-17] MEDS ORDERED: POTA8TAB3 PO (15:14)
[2022-08-17] MEDS ORDERED: TIOT18CA3 IH (15:14)
[2022-08-17] MEDS ORDERED: FLUT1DIS3 INH (15:14)
--- NOTE | 2022-08-17 15:15 | NUR ---
PT AND FAMILY EDUCATED ON THE NEED FOR A URINE SAMPLE AND VERBALIZED UNDERSTANDING. PER PT AND FAMILY, PT CANNOT PROVIDE A URINE SAMPLE AT THIS TIME. PT AND FAMILY REFUSE STRAIGHT CATHETERIZATION FOR A URINE SAMPLE AT THIS TIME. NICA MADE AWARE
[2022-08-17 15:19] LABS: BASOPHILS % (AUTO) 0.3 % (0.0-2.0); EOSINOPHILS % (AUTO) 2.6 % (0.0-6.0); HEMATOCRIT 28 % (33-45); HEMOGLOBIN 9.1 g/dL (11.5-14.8); LYMPHOCYTES # (AUTO) 1.7 K/uL (0.8-4.8); LYMPHOCYTES % (AUTO) 17.7 % (20.0-44.0); MEAN CORPUSCULAR HGB CONC 33 g/dl (31.0-36.0); MEAN CORPUSCULAR VOLUME 98 fL (82-100); MONOCYTES # (AUTO) 1.1 K/uL (0.1-1.30); MONOCYTES % (AUTO) 11.5 % (2.0-12.0); NEUTROPHILS # (AUTO) 6.6 K/uL (1.8-8.9); NEUTROPHILS % (AUTO) 67.9 % (43.0-81.0); PLATELET COUNT (AUTO) 223 K/uL (150-450); RED BLOOD CELL COUNT(AUTO) 2.81 MIL/uL (4.0-5.2); WHITE BLOOD COUNT (AUTO) 9.8 K/uL (4.3-11.0)
[2022-08-17 15:32] LABS: CALCIUM, SERUM 9.1 mg/dL (8.5-10.1); CARBON DIOXIDE 25 mmol/L (21-32); CHLORIDE 103 mmol/L (98-107); CREATININE 1.2 mg/dL (0.6-1.3); GLUCOSE 80 mg/dL (74-106); POTASSIUM 4.4 mmol/L (3.5-5.1); SODIUM SERUM 139 mmol/L (136-145); UREA NITROGEN, BLOOD 30 mg/dL (7-18)
[2022-08-17 15:38] LABS: ALANINE AMINOTRANSFERASE 17 U/L (12-78); ALBUMIN 3.6 g/dL (3.4-5.0); ALKALINE PHOSPHATASE 113 U/L (46-116); ASPARTATE AMINOTRANSFERASE 16 U/L (15-37); BILIRUBIN,DIRECT 0.2 mg/dL (0.0-0.2); BILIRUBIN,TOTAL 0.7 mg/dL (0.2-1.0); TOTAL PROTEIN, SERUM 6.5 g/dL (6.4-8.2)
--- NOTE | 2022-08-17 15:39 | NUR ---
PT INCONTINENT OF STOOL. PT CLEANSED LINENS CHANGED
--- NOTE | 2022-08-17 15:40 | NUR ---
URINE SAMPLE OBTAINED AND SENT TO LAB
[2022-08-17 16:32] LABS: BILIRUBIN,URINE NEGATIVE (NEGATIVE); COLOR,URINE YELLOW (YELLOW); LEUKOCYTE ESTERASE ,URINE 2+ (NEGATIVE); NITRITE, URINE NEGATIVE (NEGATIVE); PH,URINE 6.5 (5.0-8.0); PROTEIN,URINE NEGATIVE (NEGATIVE); UGLUCOSE NEGATIVE (NEGATIVE); UROBILINOGEN,URINE 0.2 EU/dL (0.2)
[2022-08-17 16:44] LABS: BACTERIA,URINE 2+ /HPF (None Seen); RBC,URINE 0-2 /HPF (0-2); WBC,URINE 21-50 /HPF (0-3)
--- NOTE | 2022-08-17 17:25 | NUR ---
[facility] CALLED LOG SORTER PAGED.
[2022-08-17] MEDS ORDERED: VANCOMYCIN 1 GM in IV D5W 250 ML IV ONE (17:30)
[2022-08-17] MEDS ORDERED: CEFTRIAXONE 1GM BAG (ER ONLY) 1 GM/50 ML PIGGYBACK IV ONE (17:30)
[2022-08-17] MEDS ORDERED: CEFTRIAXONE 1 G VIAL ONE (17:31)
--- NOTE | 2022-08-17 17:39 | NUR ---
PHARMACY CALLED FOR PT MEDICATION
--- NOTE | 2022-08-17 17:42 | NUR ---
PT INCONTINENT OF URINE. PT CLEANSED AND CHANGED
[2022-08-17] MEDS ORDERED: TRAMADOL HCL 50 MG TABLET PO PRN (19:00)
[2022-08-17] MEDS ORDERED: MAGNESIUM HYDROXIDE 30 ML UDC PO PRN (19:00)
[2022-08-17] MEDS ORDERED: DEXTROSE 50%-WATER 50 ML DISP.SYRIN IV PRN (19:00)
[2022-08-17] MEDS ORDERED: ONDANSETRON HCL/PF 4 MG/2 ML VIAL IVP PRN (19:00)
[2022-08-17] MEDS ORDERED: ACETAMINOPHEN 325 MG TABLET PO PRN (19:00)
[2022-08-17] MEDS ORDERED: Z GUARD REMEDY 4 OZ OINT TP PRN (19:00)
[2022-08-17] MEDS ORDERED: MAG HYDROX/AL HYDROX/SIMETH 30 ML UDC PO PRN (19:00)
[2022-08-17] MEDS ORDERED: *INSULIN REGULAR(HUMULIN R)HUM 100 UNIT/ML VIAL SQ PRN (19:00)
--- NOTE | 2022-08-17 19:42 | NUR ---
REPORT GIVEN TO STEPHEN PARTIDA, [facility]
--- NOTE | 2022-08-17 19:58 | NUR ---
PT MOVED TO 112-2 [facility] VIA ACLS PROTOCOL
[2022-08-17 20:00] VITALS: BP 136/60
[2022-08-17] MEDS ORDERED: CEFTRIAXONE 1 G in IV D5W 50 ML IV SCH (20:00)
--- NOTE | 2022-08-17 20:30 | NUR ---
BOOM TRUCK DRIVER ADMITTING NOTE PATIENT WAS TRANSFERRED FROM ER TO [facility] RM 112 - 2 AT 2000H; PATIENT IS A/O X 3-4, ZIMBABWEAN SPEAKING BUT CAN UNDERSTAND LITTLE NIUEAN; WITH RELATIVE AT BEDSIDE; ABLE TO MAKE NEEDS KNOWN; STABLE ON ROOM AIR, BREATHING EVENLY AND NO S/S OF DISTRESS NOTED; HOOKED TO TELE MONITORING; WITH IV ACCESS AT RIGHT HAND G#22 RUNNING WITH VANCOMYCIN BUT NOTED TO BE INFILTRATED SO IV WAS PAUSED FOR THE MEANTIME; SKIN ASSESSMENT WAS DONE AND NOTED BRUISES ON MULTIPLE PARTS OF BODY PARTICULARLY ON LEFT ARM; PHOTOGRAPHED AND INSERTED INTO CHART; ORIENTED TO STAFF AND ROOM; SAFETY MEASURES IMPLEMENTED, BED LOCKED IN LOWEST POSITION, SIDE RAILS UP X 2, CALL LIGHT AND TABLE WITHIN REACH; WILL CONTINUE TO MONITOR THROUGHOUT SHIFT
--- NOTE | 2022-08-17 21:00 | NUR ---
COURTESY CAR DRIVER NOTE REINSERTED IV ON RIGHT HAND G#24, INTACT AND PATENT, FLUSHING WELL WITH NORMAL SALINE; VANCOMYCIN WAS CONSUMED; WILL CONTINUE TO MONITOR
[2022-08-17] MEDS: RANOLAZINE 500 MG TAB.ER.12H PO SCH (21:55)
[2022-08-17] MEDS: BLOOD SUGAR DIAGNOSTIC 1 EACH STRIP VI SCH (22:22)
--- NOTE | 2022-08-17 22:30 | NUR ---
HEALTH SERVICES MANAGER NOTE ACCUCHECK WAS DONE AND PATIENT'S BLOOD SUGAR WAS 169. 3 UNITS OF REGULAR INSULIN WAS TO BE GIVEN PER SLIDING SCALE BUT PATIENT REFUSED STATING THAT SHE JUST ATE. WILL CONTINUE TO MONITOR
[2022-08-18] VITALS: BP 114/82
--- NOTE | 2022-08-18 02:15 | NUR ---
RODEO CLOWN NOTE PATIENT HAS EPISODES OF BURPING NUMEROUS TIMES AND FELT UNCOMFORTABLE, CHARGE NURSE MADE AWARE. ADMINISTERED MAALOX PRN ORDERED.
--- NOTE | 2022-08-18 02:40 | NUR ---
SPIKE MACHINE HEATER NOTE PATIENT STILL FELT UNCOMFORTABLE, VERBALIZED WANTING TO VOMIT BUT UNABLE TO. INSISTED ON GETTING MEDICATION FOR NAUSEA AND VOMITING, ADMINISTERED ZOFRAN PRN ORDERED; PATIENT TOLERATED WELL AND BECAME RELAXED, DOZING INTERMITTENTLY
[2022-08-18 04:00] VITALS: BP 138/89
[2022-08-18 06:04] LABS: BASOPHILS % (AUTO) 0.3 % (0.0-2.0); EOSINOPHILS % (AUTO) 2.4 % (0.0-6.0); HEMATOCRIT 26 % (33-45); HEMOGLOBIN 8.6 g/dL (11.5-14.8); LYMPHOCYTES # (AUTO) 0.9 K/uL (0.8-4.8); LYMPHOCYTES % (AUTO) 10.7 % (20.0-44.0); MEAN CORPUSCULAR HGB CONC 34 g/dl (31.0-36.0); MEAN CORPUSCULAR VOLUME 96 fL (82-100); MONOCYTES # (AUTO) 0.4 K/uL (0.1-1.30); NEUTROPHILS % (AUTO) 81.6 % (43.0-81.0); PLATELET COUNT (AUTO) 200 K/uL (150-450); RED BLOOD CELL COUNT(AUTO) 2.65 MIL/uL (4.0-5.2); WHITE BLOOD COUNT (AUTO) 8.6 K/uL (4.3-11.0)
[2022-08-18 06:46] LABS: ALANINE AMINOTRANSFERASE 17 U/L (12-78); ALBUMIN 3.1 g/dL (3.4-5.0); ALKALINE PHOSPHATASE 103 U/L (46-116); ASPARTATE AMINOTRANSFERASE 14 U/L (15-37); BILIRUBIN,TOTAL 0.6 mg/dL (0.2-1.0); CALCIUM, SERUM 8.7 mg/dL (8.5-10.1); CARBON DIOXIDE 25 mmol/L (21-32); CHLORIDE 103 mmol/L (98-107); CREATININE 0.9 mg/dL (0.6-1.3); GLUCOSE 109 mg/dL (74-106); PHOSPHORUS 3.8 mg/dL (2.5-4.9); POTASSIUM 4.3 mmol/L (3.5-5.1); SODIUM SERUM 138 mmol/L (136-145); TOTAL PROTEIN, SERUM 5.8 g/dL (6.4-8.2); UREA NITROGEN, BLOOD 21 mg/dL (7-18)
--- NOTE | 2022-08-18 06:52 | NUR ---
PARK KEEPER CLOSING NOTE PATIENT IS A/O X 3-4, LAO SPEAKING BUT CAN UNDERSTAND LITTLE ALBANIAN; ABLE TO MAKE NEEDS KNOWN; STABLE ON ROOM AIR, BREATHING EVENLY AND NO S/S OF DISTRESS NOTED; HOOKED TO TELE MONITORING CURRENTLY READING SR 70S BPM; WITH IV ACCESS AT RIGHT HAND G#24, INTACT AND PATENT AND MIDLINE ACCESS AT DAVID G#20, INTACT AND FLUSHING WELL; ADMINISTERED MEDICATIONS PRESCRIBED; PATIENT'S NEEDS ATTENDED; MONITORED PATIENT ACCORDINGLY; SAFETY MEASURES IMPLEMENTED, BED LOCKED IN LOWEST POSITION, HEAD OF BED ELEVATED, SIDE RAILS UP X 2, CALL LIGHT AND TABLE WITHIN REACH; WILL ENDORSE TO AM NURSE FOR BENIGNO.
[2022-08-18 08:00] VITALS: BP 131/70
[2022-08-18] MEDS: LEVOTHYROXINE SODIUM 50 MCG TABLET PO SCH (08:35)
[2022-08-18] MEDS: METOCLOPRAMIDE HCL 10 MG TABLET PO SCH ×2 (08:36→16:35)
[2022-08-18] MEDS: PANTOPRAZOLE 40 MG TABLET.DR PO SCH ×2 (08:36→16:35)
[2022-08-18] MEDS: RANOLAZINE 500 MG TAB.ER.12H PO SCH ×2 (08:36→21:41)
[2022-08-18] MEDS: CELECOXIB 100 MG CAPSULE PO SCH ×2 (08:36→16:35)
[2022-08-18] MEDS: AMLODIPINE BESYLATE 5 MG TABLET PO SCH ×2 (08:36→16:35)
[2022-08-18] MEDS: FERROUS SULFATE (325 MG) 325 MG/TAB TABLET PO SCH ×2 (08:36→16:35)
[2022-08-18] MEDS: BLOOD SUGAR DIAGNOSTIC 1 EACH STRIP VI SCH ×4 (08:44→21:41)
[2022-08-18] MEDS: INSULIN REGULAR, HUMAN 100 UNIT/ML 3 ML VIAL SQ PRN ×3 (08:45→16:44)
[2022-08-18] MEDS ORDERED: FLUTICASONE/SALMETEROL 1 DISK IH SCH ×2 (09:00)
[2022-08-18] MEDS ORDERED: LORATADINE 10 MG TABLET PO SCH (09:00)
[2022-08-18] MEDS ORDERED: ATORVASTATIN 40 MG TABLET PO SCH (09:00)
[2022-08-18] MEDS ORDERED: Medication Not On Formulary EA (Potassium Chloride 8 MEQ) PO SCH (09:00)
[2022-08-18] MEDS ORDERED: METOPROLOL SUCCINATE 25 MG TAB.SR.24H PO SCH (09:00)
[2022-08-18] MEDS ORDERED: TIOTROPIUM BROMIDE 6 CAP/BOX CAP.W.DEV IH SCH ×2 (09:00)
[2022-08-18 12:00] VITALS: BP 125/56
[2022-08-18] MEDS ORDERED: IPRATROPIUM NEB FS 0.5 MG/2.5 ML AMPUL.NEB NEB SCH (13:30)
[2022-08-18] MEDS ORDERED: ALBUTEROL FS 2.5 MG/3 ML VIAL.NEB NEB SCH (13:30)
[2022-08-18 16:00] VITALS: BP 122/69
[2022-08-18] MEDS ORDERED: HOME MED MISCELLANEOUS PO SCH ×2 (17:00→18:00)
--- NOTE | 2022-08-18 17:53 | NUR ---
DAUGHTER BROUGHT PATIENT'S HOME MEDS - VASCEPA 10 GEL CAPSULES AND 5 CAPSULES OF LINZESS. MEDS GIVEN TO PHARMACY.
--- NOTE | 2022-08-18 18:30 | NUR ---
END OF SHIFT SUMMARY PATIENT IS A/O X3-4. MAINLY TOGOLESE SPEAKING. SR ON TELE. IV ACCESS ON R HAND AND DAVID ML, INTACT AND PATENT. PUREWICK IN PLACE, INCONTINENCE CARE PROVIDED. SAFETY MEASURES MAINTAINED. BED IN LOWEST POSITION, BRAKES LOCKED. SIDE RAILS UP X2. CALL LIGHT WITHIN REACH. WILL ENDORSE CONTINUITY OF CARE TO ONCOMING SHIFT.
[2022-08-18] MEDS ORDERED: ASPIRIN EC 81 MG TABLET.DR PO SCH (19:00)
--- NOTE | 2022-08-18 19:15 | NUR ---
GRANITE SANDBLASTER APPRENTICE opening note Received pt resting in bed, awake, A&Ox2, breathing even and unlabored, afebrile, KEANU ML, SL, no acute distress noted at this time, all safety measures are in place, call light with in reach, will continue to monitor.
[2022-08-18] MEDS ORDERED: BUDESONIDE RESPULE INH 0.5 MG/2 ML AMPUL.NEB IH SCH (19:30)
[2022-08-18 20:00] VITALS: BP 129/57
[2022-08-18] MEDS ORDERED: CEFTRIAXONE 1 G in IV D5W 50 ML IV SCH (20:00)
[2022-08-19] VITALS: BP 129/57
[2022-08-19 04:00] VITALS: BP 128/56
--- NOTE | 2022-08-19 06:16 | NUR ---
Pt pulled out ML at this time, and is refusing tele monitor x3, r/b explained x3, pt expressing anger towards bed stating " I want to go home I have a good bed, this bed not good for me" redirected pt back to bed and made comfortable as possible, pt stating she wants daughter to pick her up and take her home, calmed pt down and explained we will contact daughter in A.M shift, pt is back in bed at this time and is calm
--- NOTE | 2022-08-19 07:15 | NUR ---
Pt still non compliant, refusing tele monitor, pure wick, and refusing to get back in bed, pt sitting in chair at bed side, agitated, endorsed to AM nurse Mary PARTIDA and attempting to contact daughter at this time.
[2022-08-19] MEDS: BLOOD SUGAR DIAGNOSTIC 1 EACH STRIP VI SCH (07:30)
[2022-08-19] MEDS: LEVOTHYROXINE SODIUM 50 MCG TABLET PO SCH (07:30)
[2022-08-19] MEDS: PANTOPRAZOLE 40 MG TABLET.DR PO SCH (07:30)
--- NOTE | 2022-08-19 07:32 | NUR ---
RN NOTE PT VERY AGITATED, REFUSING TO STAY IN BED, PT REFUSING TELE MONITOR, PUREWICK AND TO TAKE ANY MEDICATION. DAUGHTER IBIS CALLED. DAUGHTER JUST ARRIVED AT BEDSIDE.
--- NOTE | 2022-08-19 07:44 | NUR ---
RN NOTE DAUGHTER STILL AT BEDSIDE, PT REFUSING TO COOPERATE. DR. JOANNA WALKER.
[2022-08-19] MEDS ORDERED: SULF1TAB48 PO (08:34)
--- NOTE | 2022-08-19 09:18 | NUR ---
RN NOTE PT LEFT, DISCHARGED BY DR. MARSHALL. DAUGHTER IBIS AT BEDSIDE TO DRIVE PT HOME. IV REMOVED ON RIGHT HAND, NO SIGNS OF BLEEDING. INSTRUCTION GIVEN TO DAUGHTER. PT WHEELCHAIR TO IBIS'S CAR SAFELY.
== END 2022-08-19 09:29 | disposition home or self-care (01) | DRG 640 ==
LOC: ER 13:12 → TELE1 19:17
PROVIDERS: ADMIT Internal Medicine; ATTEND Internal Medicine
PROC: 05H933Z Insertion of Infusion Device into Right Brachial Vein, Percutaneous Approach (ICD-10-PCS; principal; 2022-08-18)
DX: E86.0 Dehydration (principal); N39.0 Urinary tract infection, site not specified; G93.41 Metabolic encephalopathy; N17.0 Acute kidney failure with tubular necrosis; E03.9 Hypothyroidism, unspecified; E78.5 Hyperlipidemia, unspecified; Z79.82 Long term (current) use of aspirin; Z79.899 Other long term (current) drug therapy; Z79.890 Hormone replacement therapy; E88.09 Other disorders of plasma-protein metabolism, not elsewhere classified; E11.9 Type 2 diabetes mellitus without complications; I11.9 Hypertensive heart disease without heart failure; D64.9 Anemia, unspecified; I25.10 Atherosclerotic heart disease of native coronary artery without angina pectoris; Z88.0 Allergy status to penicillin; S42.309D Unspecified fracture of shaft of humerus, unspecified arm, subsequent encounter for fracture with routine healing; X58.XXXD Exposure to other specified factors, subsequent encounter; Z79.84 Long term (current) use of oral hypoglycemic drugs; Z79.51 Long term (current) use of inhaled steroids; E61.1 Iron deficiency; M84.48XD Pathological fracture, other site, subsequent encounter for fracture with routine healing; Z91.81 History of falling
CPT/HCPCS: 36410; 36415; 70450-TC; 71045-TC; 80048-TC; 80053-TC; 80076-TC; 81001; 82962-TC; 83735-TC; 83880; 84100-TC; 84484-TC; 85025-TC; 87040-TC; 87081-TC; 87086-TC; A4223; C9803; G0378; J0696; J1815; J2405; J3370; J7030; J7050; J7060; J8597

== ENCOUNTER 2022-08-30 08:33 | Inpatient (IN) | payer MEDICARE, OTHER ==
[~2022-08-30] VITALS: Ht 160 cm; Wt 62.1 kg
[~2022-08-30 08:33] MED LIST changes: +ASPI-1420 PO; +FLUT1DIS3 INH; +METO10TA3 PO; +POTA8TAB3 PO; +SULF1TAB48 PO; -TELM80TA9 PO; +TIOT18CA3 IH; +TRAM50TA2 PO
[2022-08-30] MEDS ORDERED: IV NS 0.9% 1,000 ML BAG IV ONE (09:00)
[2022-08-30] MEDS ORDERED: ONDANSETRON HCL/PF 4 MG/2 ML VIAL IVP ONE (09:00)
--- NOTE | 2022-08-30 09:00 | NUR ---
REceived pt 86 yrs female came from home by amanda c/o perping with nuasea and vomiting awake and alert
[2022-08-30] MEDS ORDERED: ONDANSETRON HCL/PF 4 MG/2 ML VIAL ONE (09:16)
--- NOTE | 2022-08-30 09:20 | NUR ---
See BY DR. OTT INSERTED ANGOCATHETER G 20 ON LT WRIST BLOOD DROW AND SENT TO LAB
[2022-08-30 09:35] LABS: BASOPHILS # (AUTO) 0.1 K/uL (0.0-0.2); BASOPHILS % (AUTO) 0.3 % (0.0-2.0); HEMATOCRIT 30 % (33-45); HEMOGLOBIN 9.8 g/dL (11.5-14.8); LYMPHOCYTES # (AUTO) 1.6 K/uL (0.8-4.8); LYMPHOCYTES % (AUTO) 10.1 % (20.0-44.0); MEAN CORPUSCULAR HGB CONC 32 g/dl (31.0-36.0); MEAN CORPUSCULAR VOLUME 98 fL (82-100); MONOCYTES # (AUTO) 1.7 K/uL (0.1-1.30); MONOCYTES % (AUTO) 10.4 % (2.0-12.0); NEUTROPHILS # (AUTO) 12.6 K/uL (1.8-8.9); NEUTROPHILS % (AUTO) 77.2 % (43.0-81.0); PLATELET COUNT (AUTO) 222 K/uL (150-450); RED BLOOD CELL COUNT(AUTO) 3.09 MIL/uL (4.0-5.2); WHITE BLOOD COUNT (AUTO) 16.3 K/uL (4.3-11.0)
[2022-08-30 09:50] LABS: ALANINE AMINOTRANSFERASE 19 U/L (12-78); ALBUMIN 3.6 g/dL (3.4-5.0); ALKALINE PHOSPHATASE 109 U/L (46-116); ASPARTATE AMINOTRANSFERASE 27 U/L (15-37); BILIRUBIN,DIRECT 0.2 mg/dL (0.0-0.2); BILIRUBIN,TOTAL 0.7 mg/dL (0.2-1.0); CALCIUM, SERUM 9.2 mg/dL (8.5-10.1); CARBON DIOXIDE 23 mmol/L (21-32); CHLORIDE 96 mmol/L (98-107); CREATININE 1.1 mg/dL (0.6-1.3); GLUCOSE 125 mg/dL (74-106); LIPASE 55 U/L (73-393); POTASSIUM 5.4 mmol/L (3.5-5.1); SODIUM SERUM 127 mmol/L (136-145); TOTAL PROTEIN, SERUM 6.6 g/dL (6.4-8.2); UREA NITROGEN, BLOOD 21 mg/dL (7-18)
--- NOTE | 2022-08-30 10:25 | NUR ---
TO CT SCAN
--- NOTE | 2022-08-30 11:00 | NUR ---
UA SENT TO LAB
--- NOTE | 2022-08-30 11:21 | NUR ---
MOVE SHEET SUBMITTED.
--- NOTE | 2022-08-30 11:32 | NUR ---
COVID SWAB SENT TO LAB
[2022-08-30 12:16] LABS: BILIRUBIN,URINE NEGATIVE (NEGATIVE); COLOR,URINE YELLOW (YELLOW); LEUKOCYTE ESTERASE ,URINE NEGATIVE (NEGATIVE); NITRITE, URINE NEGATIVE (NEGATIVE); PROTEIN,URINE NEGATIVE (NEGATIVE); UGLUCOSE NEGATIVE (NEGATIVE); UROBILINOGEN,URINE 0.2 EU/dL (0.2)
--- NOTE | 2022-08-30 12:42 | NUR ---
[facility] CALLED MANUFACTURING MANAGER PAGED.
--- NOTE | 2022-08-30 12:49 | NUR ---
GOT BED 328-2 ADMITTING INFORMED.
--- NOTE | 2022-08-30 13:40 | NUR ---
HAND OFF TO ZIA RN TO ROOM 328-2 VIA CLYDE CHISHOLM VS AND CONSITION
--- NOTE | 2022-08-30 14:33 | NUR ---
MS HAND BINDERY ASSEMBLY WORKER NOTES RECEIVED PATIENT ALERT/ORIENTED X 4, ABLE TO MAKE NEEDS KNOWN. ON ROOM AIR. WITH EVEN AND UNLABORED BREATHING. NOT IN ANY FORM OF DISTRESS AT THIS TIME. AMBULATORY, NO WEAKNESS NOTED ON BOTH UPPER AND LOWER EXTREMITIES. WITH IV G#20 ON LEFT WRIST ON SALINE LOCK. INITIAL BODY ASSESSMENT AND ADMISSIONS QUESTIONS DONE. MD MADE AWARE. RECEIVED ORDERS NOTED AND CARRIED OUT. WILL CONTINUE WITH PLAN OF CARE.
[2022-08-30] MEDS ORDERED: DEXTROSE 50%-WATER 50 ML DISP.SYRIN IV PRN (15:30)
[2022-08-30] MEDS ORDERED: ALBUTEROL HALF STRENGTH 1.25 MG/3 ML VIAL.NEB NEB PRN (15:30)
[2022-08-30] MEDS ORDERED: BISACODYL SUPP (10 MG) 10 MG/SUPP.RECT SUPP.RECT RC PRN (15:30)
[2022-08-30] MEDS ORDERED: ACETAMINOPHEN 325 MG TABLET PO PRN (15:30)
[2022-08-30] MEDS ORDERED: IPRATROPIUM NEB FS 0.5 MG/2.5 ML AMPUL.NEB NEB PRN (15:30)
[2022-08-30] MEDS ORDERED: ONDANSETRON HCL/PF 4 MG/2 ML VIAL IVP PRN (15:30)
[2022-08-30] MEDS ORDERED: Z GUARD REMEDY 4 OZ OINT TP PRN (15:30)
[2022-08-30] MEDS ORDERED: IV NS 0.9% 1,000 ML IV PRN (15:30)
[2022-08-30] MEDS: BUDESONIDE RESPULE INH 0.5 MG/2 ML AMPUL.NEB NEB SCH (15:35)
[2022-08-30 16:00] VITALS: BP 135/54
[2022-08-30] MEDS: SORBITOL SOLUTION 70% 30 ML SOLUTION PO SCH (16:22)
[2022-08-30] MEDS: LACTULOSE 10 G/15 ML UDC (PYXIS) PO SCH ×2 (16:23→21:03)
[2022-08-30] MEDS: AMLODIPINE BESYLATE 5 MG TABLET PO SCH (16:24)
[2022-08-30] MEDS: LOSARTAN POTASSIUM 50 MG TABLET PO SCH (16:25)
[2022-08-30] MEDS: ENOXAPARIN SODIUM 40 MG/0.4 ML DISP.SYRIN SQ SCH ×2 (16:27→21:03)
[2022-08-30] MEDS: RANOLAZINE 500 MG TAB.ER.12H PO SCH (16:41)
[2022-08-30] MEDS: FERROUS SULFATE (325 MG) 325 MG/TAB TABLET PO SCH (16:41)
[2022-08-30] MEDS ORDERED: FLUTICASONE/SALMETEROL 1 DISK IH SCH (17:00)
[2022-08-30] MEDS: BLOOD SUGAR DIAGNOSTIC 1 EACH STRIP IN SCH ×2 (17:11→21:17)
--- NOTE | 2022-08-30 19:25 | NUR ---
MS RN OPENING NOTE RECEIVED PT AWAKE IN BED. A/O X3, UZBEK SPEAKING, AND ABLE TO MAKE NEEDS KNOWN. PT STABLE ON ROOM AIR. NO SOB OR S/S OF RESPIRATORY DISTRESS. BREATHING EVEN AND UNLABORED. IV ACCESS L WRIST 20G, INTACT AND PATENT, RUNNING NS @ 75 ML/HR. NO COMPLAINTS OF PAIN OR DISCOMFORT AT THIS TIME. SAFETY PRECAUTIONS IN PLACE. BED IN LOWEST LOCKED POSITION, HOB ELEVATED, SIDE RAILS UP X2, AND CALL LIGHT AND TABLE WITHIN REACH. ALL NEEDS MET AT THIS TIME.
--- NOTE | 2022-08-30 19:30 | NUR ---
MS RN CLOSING NOTES PATIENT COMFORTABLY RESTING IN BED, ALERT/ORIENTED X 4, ABLE TO MAKE NEEDS KNOWN. ON ROOM AIR. WITH EVEN AND UNLABORED BREATHING. NOT IN ANY FORM OF DISTRESS AT THIS TIME. AMBULATORY, NO WEAKNESS NOTED ON BOTH UPPER AND LOWER EXTREMITIES. WITH IV G#20 ON LEFT WRIST ON SALINE LOCK. INFORMED MD REGARDING PATIENT'S SERUM POTASSIUM 5.4, WITH NO ORDER RECEIVED. WILL ENDORSE TO PM SHIFT ACCORDINGLY.
[2022-08-30 20:00] VITALS: BP 116/50
[2022-08-30] MEDS: ALBUTEROL FS 2.5 MG/3 ML VIAL.NEB NEB SCH (20:15)
[2022-08-30] MEDS: INSULIN REGULAR, HUMAN 100 UNIT/ML 3 ML VIAL SQ PRN (21:18)
[2022-08-30] MEDS ORDERED: ATORVASTATIN 40 MG TABLET PO SCH (22:00)
[2022-08-31] VITALS: BP 98/69
[2022-08-31] MEDS: BLOOD SUGAR DIAGNOSTIC 1 EACH STRIP IN SCH ×4 (00:16→13:42)
[2022-08-31] MEDS: INSULIN REGULAR, HUMAN 100 UNIT/ML 3 ML VIAL SQ PRN (00:17)
[2022-08-31] MEDS: ALBUTEROL FS 2.5 MG/3 ML VIAL.NEB NEB SCH ×3 (01:13→13:30)
[2022-08-31] MEDS: LACTULOSE 10 G/15 ML UDC (PYXIS) PO SCH ×2 (03:13→08:47)
[2022-08-31 04:00] VITALS: BP 91/68
--- NOTE | 2022-08-31 05:25 | NUR ---
RN NOTE PT REFUSED ALL INSULIN COVERAGE AND 0500 ACCUCHECK. PT AGITATED AT THIS TIME ABOUT THE LACTULOSE NOT WORKING FAST ENOUGH EVEN THOUGH PT HAD A BOWEL MOVEMENT. PT STARTED YELLING THAT SHE IS GOING TO LEAVE AND TO LEAVE HER ALONE. ATTEMPTED TO EDUCATE ON THE IMPORTANCE OF DOING BLOOD SUGAR CHECKS BUT PT STILL REFUSED. CHARGE NURSE RAS DE LA O.
--- NOTE | 2022-08-31 06:36 | NUR ---
MS RN CLOSING NOTE PT AWAKE IN BED. A/O X3, NICARAGUAN SPEAKING, AND ABLE TO MAKE NEEDS KNOWN. PT STABLE ON ROOM AIR. NO SOB OR S/S OF RESPIRATORY DISTRESS. BREATHING EVEN AND UNLABORED. IV ACCESS L WRIST 20G, INTACT AND PATENT, RUNNING NS @ 75 ML/HR. NO COMPLAINTS OF PAIN OR DISCOMFORT AT THIS TIME. KEPT CLEAN AND DRY. SAFETY PRECAUTIONS IN PLACE AT ALL TIMES. BED IN LOWEST LOCKED POSITION, HOB ELEVATED, SIDE RAILS UP X2, AND CALL LIGHT AND TABLE WITHIN REACH. ALL NEEDS MET AT THIS TIME AND WILL ENDORSE TO ONCOMING NURSE FOR BENIGNO.
[2022-08-31] MEDS: BUDESONIDE RESPULE INH 0.5 MG/2 ML AMPUL.NEB NEB SCH (07:05)
[2022-08-31] MEDS ORDERED: LEVOTHYROXINE SODIUM 50 MCG TABLET PO SCH (07:30)
--- NOTE | 2022-08-31 08:09 | NUR ---
RN OPENING NOTE RECEIVED PATIENT IN BED AO x 3, EAST TIMORESE/ENGLISCH SPEAKING, ABLE TO RESPONDS PHYSICAL STIMULI. RESPIRATORY EVEN AND UNLABORED IN ROOM AIR. IN NO ACUTE RESPIRATORY DISTRESS OBSERVED. SKIN IS WARM TO TOUCH, KEEP CLEAN/DRY. KEPT ELEVATED HOB FOR ASPIRATION PRECAUTION/ENSURE AIRWAY, ALSO LOWEST BED POSITIONED. BED ALARM IS ON AT ALL TIMES FOR SAFETY. CALL LIGHT WITHIN REACH, WILL CONTINUE TO MONITOR.
[2022-08-31] MEDS: FERROUS SULFATE (325 MG) 325 MG/TAB TABLET PO SCH (08:43)
[2022-08-31] MEDS: RANOLAZINE 500 MG TAB.ER.12H PO SCH (08:43)
[2022-08-31 08:44] VITALS: BP 118/68
[2022-08-31] MEDS: AMLODIPINE BESYLATE 5 MG TABLET PO SCH (08:44)
[2022-08-31] MEDS: LOSARTAN POTASSIUM 50 MG TABLET PO SCH (08:44)
[2022-08-31] MEDS: SORBITOL SOLUTION 70% 30 ML SOLUTION PO SCH (08:44)
[2022-08-31] MEDS ORDERED: GLIMEPIRIDE 1 MG TABLET PO SCH (09:00)
[2022-08-31] MEDS ORDERED: LINAGLIPTIN 5 MG TABLET PO SCH (09:00)
[2022-08-31] MEDS ORDERED: LORATADINE 10 MG TABLET PO SCH (09:00)
--- NOTE | 2022-08-31 14:28 | NUR ---
PATIENT D/CO TO HOME, GIVEN DISCHARGE INSTRUCTION TO HER SON; FOLLOW UP AN APPOINTMENT FOR ESOPHAGRAM AN OUT PATIENT. PATIENT IN STABLE CONDITION, IN NO DISTRESS OBSERVED. REMOVED IV LINE BEFORE PATIENT LEAVE.
[2022-09-01] MEDS ORDERED: ASPIRIN EC 81 MG TABLET.DR PO SCH (14:00)
== END 2022-08-31 14:30 | disposition left against medical advice (07) | DRG 392 ==
LOC: ER 08:36 → MED 13:03
PROVIDERS: ADMIT Internal Medicine; ATTEND Nurse Practitioner Acute Care
DX: K22.4 Dyskinesia of esophagus (principal); E87.1 Hypo-osmolality and hyponatremia; I50.32 Chronic diastolic (congestive) heart failure; M48.54XA Collapsed vertebra, not elsewhere classified, thoracic region, initial encounter for fracture; Q43.0 Meckel's diverticulum (displaced) (hypertrophic); I11.0 Hypertensive heart disease with heart failure; E87.5 Hyperkalemia; D63.8 Anemia in other chronic diseases classified elsewhere; E03.9 Hypothyroidism, unspecified; K59.09 Other constipation; K21.9 Gastro-esophageal reflux disease without esophagitis; E78.5 Hyperlipidemia, unspecified; E11.9 Type 2 diabetes mellitus without complications; Z79.84 Long term (current) use of oral hypoglycemic drugs; Z79.82 Long term (current) use of aspirin; Z79.899 Other long term (current) drug therapy; Z79.890 Hormone replacement therapy; J45.909 Unspecified asthma, uncomplicated; F03.90 Unspecified dementia, unspecified severity, without behavioral disturbance, psychotic disturbance, mood disturbance, and anxiety; K80.20 Calculus of gallbladder without cholecystitis without obstruction; D72.829 Elevated white blood cell count, unspecified; I25.10 Atherosclerotic heart disease of native coronary artery without angina pectoris; Z88.0 Allergy status to penicillin; Z79.51 Long term (current) use of inhaled steroids; M47.815 Spondylosis without myelopathy or radiculopathy, thoracolumbar region
CPT/HCPCS: 36415; 80048-TC; 80076-TC; 82962-TC; 83690-TC; 84484-TC; 85025-TC; 87081-TC; 87086-TC; 94799-TC; A4223; C9803; G0378; J1650; J1815; J2405; J7030

== ENCOUNTER 2022-09-06 08:53 | Outpatient (CLI) | payer MEDICARE, OTHER ==
[~2022-09-06 08:53] MED LIST changes: -SULF1TAB48 PO
== END 2022-09-06 23:59 | disposition home or self-care (01) ==
LOC: RAD 08:53
DX: K44.9 Diaphragmatic hernia without obstruction or gangrene (principal); K21.9 Gastro-esophageal reflux disease without esophagitis
CPT/HCPCS: 74230-TC

== ENCOUNTER 2023-10-15 22:28 | Emergency (ER) | payer MEDICARE, OTHER ==
[~2023-10-15] VITALS: Ht 160 cm; Wt 65.8 kg
[2023-10-15] MEDS ORDERED: ONDANSETRON HCL/PF 4 MG/2 ML VIAL ONE (23:05)
[2023-10-15] MEDS: IV NS 0.9% 1,000 ML BAG IV ONE (23:20)
[2023-10-15] MEDS: ONDANSETRON HCL/PF 4 MG/2 ML VIAL IVP ONE (23:20)
[2023-10-16 00:01] LABS: BASOPHILS % (AUTO) 0.3 % (0.0-2.0); EOSINOPHILS # (AUTO) 0.2 K/uL (0.0-0.7); EOSINOPHILS % (AUTO) 1.7 % (0.0-6.0); HEMATOCRIT 40 % (33-45); HEMOGLOBIN 13.6 g/dL (11.5-14.8); LYMPHOCYTES # (AUTO) 2.1 K/uL (0.8-4.8); LYMPHOCYTES % (AUTO) 20.4 % (20.0-44.0); MEAN CORPUSCULAR HEMOGLOBIN 30 PG (26.0-33.0); MEAN CORPUSCULAR HGB CONC 34 g/dl (31.0-36.0); MEAN CORPUSCULAR VOLUME 87 fL (82-100); MONOCYTES % (AUTO) 10.2 % (2.0-12.0); NEUTROPHILS # (AUTO) 6.8 K/uL (1.8-8.9); NEUTROPHILS % (AUTO) 67.4 % (43.0-81.0); PLATELET COUNT (AUTO) 132 K/uL (150-450); RED BLOOD CELL COUNT(AUTO) 4.59 MIL/uL (4.0-5.2); RED CELL DISTRIBUTION WIDTH 17.7 % (11.5-15.0); WHITE BLOOD COUNT (AUTO) 10.1 K/uL (4.3-11.0)
[2023-10-16 00:13] LABS: CALCIUM, SERUM 9.2 mg/dL (8.5-10.1); CARBON DIOXIDE 25 mmol/L (21-32); CHLORIDE 104 mmol/L (98-107); GLUCOSE 143 mg/dL (74-106); POTASSIUM 3.9 mmol/L (3.5-5.1); SODIUM SERUM 140 mmol/L (136-145); UREA NITROGEN, BLOOD 31 mg/dL (7-18)
[2023-10-16 00:39] LABS: ALANINE AMINOTRANSFERASE 31 U/L (12-78); ALBUMIN 3.1 g/dL (3.4-5.0); ALKALINE PHOSPHATASE 109 U/L (46-116); ASPARTATE AMINOTRANSFERASE 32 U/L (15-37); BILIRUBIN,DIRECT 0.2 mg/dL (0.0-0.2); BILIRUBIN,TOTAL 0.5 mg/dL (0.2-1.0); LIPASE 39 U/L (16-77); TOTAL PROTEIN, SERUM 6.5 g/dL (6.4-8.2)
[2023-10-16 02:41] LABS: APPEARANCE,URINE CLEAR (CLEAR); BILIRUBIN,URINE NEGATIVE (NEGATIVE); BLOOD, URINE TRACE-INTA Ery/uL (NEGATIVE); COLOR,URINE YELLOW (YELLOW); KETONES,URINE NEGATIVE (NEGATIVE); LEUKOCYTE ESTERASE ,URINE NEGATIVE (NEGATIVE); NITRITE, URINE NEGATIVE (NEGATIVE); PROTEIN,URINE NEGATIVE (NEGATIVE); UGLUCOSE NEGATIVE (NEGATIVE); UROBILINOGEN,URINE 0.2 EU/dL (0.2)
[2023-10-16 03:12] LABS: ADD URINE CULTURE NO; BACTERIA,URINE Rare /HPF (None Seen); RBC,URINE 0-2 /HPF (0-2); SQUAMOUS EPITHELIAL CELL,UR Rare /HPF (None Seen); WBC,URINE NONE SEEN /HPF (0-3)
[2023-10-16] MEDS ORDERED: ONDA4TAB11 PO (03:17)
[2023-10-16 03:47] VITALS: BP 126/80; TEMP 98.2; O2SAT 99
== END 2023-10-16 03:48 | disposition home or self-care (01) ==
LOC: ER 22:30
DX: T42.8X1A Poisoning by antiparkinsonism drugs and other central muscle-tone depressants, accidental (unintentional), initial encounter (principal); T43.591A Poisoning by other antipsychotics and neuroleptics, accidental (unintentional), initial encounter; R11.2 Nausea with vomiting, unspecified; G20.A1 Parkinson's disease without dyskinesia, without mention of fluctuations; F02.80 Dementia in other diseases classified elsewhere, unspecified severity, without behavioral disturbance, psychotic disturbance, mood disturbance, and anxiety; I11.0 Hypertensive heart disease with heart failure; I50.9 Heart failure, unspecified; E11.9 Type 2 diabetes mellitus without complications; E78.5 Hyperlipidemia, unspecified; E03.9 Hypothyroidism, unspecified; Z88.0 Allergy status to penicillin; Y92.89 Other specified places as the place of occurrence of the external cause
CPT/HCPCS: 99285; 96374; 71045; 96361; 93005; 85025; 80048; 83690; 80076; 36415; 84484; 81001; J2405; J7030

== ENCOUNTER 2023-12-19 19:16 | Inpatient (IN) | payer MEDICARE, OTHER ==
[~2023-12-19] VITALS: Ht 157.5 cm; Wt 48.1 kg
[~2023-12-19 19:16] MED LIST changes: +ONDA4TAB11 PO
[2023-12-19] MEDS: IV NS 0.9% 1,000 ML BAG IV ONE (20:10)
[2023-12-19 20:49] LABS: BASOPHILS % (AUTO) 0.2 % (0.0-2.0); EOSINOPHILS # (AUTO) 0.3 K/uL (0.0-0.7); EOSINOPHILS % (AUTO) 2.9 % (0.0-6.0); HEMATOCRIT 29 % (33-45); HEMOGLOBIN 9.5 g/dL (11.5-14.8); LYMPHOCYTES # (AUTO) 1.8 K/uL (0.8-4.8); LYMPHOCYTES % (AUTO) 15.4 % (20.0-44.0); MEAN CORPUSCULAR HEMOGLOBIN 32 PG (26.0-33.0); MEAN CORPUSCULAR HGB CONC 33 g/dl (31.0-36.0); MEAN CORPUSCULAR VOLUME 98 fL (82-100); MONOCYTES # (AUTO) 1.4 K/uL (0.1-1.30); MONOCYTES % (AUTO) 11.6 % (2.0-12.0); NEUTROPHILS # (AUTO) 8.3 K/uL (1.8-8.9); NEUTROPHILS % (AUTO) 69.9 % (43.0-81.0); PLATELET COUNT (AUTO) 161 K/uL (150-450); RED BLOOD CELL COUNT(AUTO) 2.96 MIL/uL (4.0-5.2); RED CELL DISTRIBUTION WIDTH 15.1 % (11.5-15.0); WHITE BLOOD COUNT (AUTO) 11.9 K/uL (4.3-11.0)
[2023-12-19 21:03] LABS: ALANINE AMINOTRANSFERASE 29 U/L (12-78); ALKALINE PHOSPHATASE 96 U/L (46-116); ASPARTATE AMINOTRANSFERASE 27 U/L (15-37); BILIRUBIN,DIRECT 0.2 mg/dL (0.0-0.2); BILIRUBIN,TOTAL 0.5 mg/dL (0.2-1.0); CALCIUM, SERUM 8.5 mg/dL (8.5-10.1); CARBON DIOXIDE 22 mmol/L (21-32); CHLORIDE 105 mmol/L (98-107); CREATININE 2.6 mg/dL (0.6-1.3); GLUCOSE 135 mg/dL (74-106); POTASSIUM 3.7 mmol/L (3.5-5.1); SODIUM SERUM 140 mmol/L (136-145); TOTAL PROTEIN, SERUM 6.3 g/dL (6.4-8.2); UREA NITROGEN, BLOOD 68 mg/dL (7-18)
[2023-12-19 21:04] LABS: LACTIC ACID 1.8 mmol/L (0.4-2.0)
[2023-12-19 21:07] LABS: INR 1.03 (0.91-1.10); PARTIAL THROMBOPLASTIN TIME 28.7 SEC (24.3-34.3); PROTHROMBIN TIME 10.9 SECS (9.2-11.1)
[2023-12-19] MEDS ORDERED: OLANZAPINE 10 MG VIAL IM ONE (21:09)
[2023-12-19] MEDS: OLANZAPINE 10 MG VIAL IM ONE (21:15)
[2023-12-19 21:27] LABS: APPEARANCE,URINE Clear (CLEAR); BILIRUBIN,URINE Negative (NEGATIVE); BLOOD, URINE Small Ery/uL (NEGATIVE); COLOR,URINE YELLOW (YELLOW); KETONES,URINE Negative (NEGATIVE); LEUKOCYTE ESTERASE ,URINE Negative (NEGATIVE); NITRITE, URINE Negative (NEGATIVE); PROTEIN,URINE Trace mg/dl (NEGATIVE); UGLUCOSE Negative (NEGATIVE); UROBILINOGEN,URINE 0.2 EU/dL (0.2)
[2023-12-19 21:29] LABS: ADD URINE CULTURE NO; BACTERIA,URINE Few /HPF (None Seen); SQUAMOUS EPITHELIAL CELL,UR Few /HPF (None Seen)
[2023-12-19] MEDS ORDERED: AZITHROMYCIN 500 MG VIAL ONE (21:54)
[2023-12-19] MEDS ORDERED: Z GUARD REMEDY 4 OZ OINT TP PRN (22:00)
[2023-12-19] MEDS ORDERED: MAG HYDROX/AL HYDROX/SIMETH 30 ML UDC PO PRN (22:00)
[2023-12-19] MEDS ORDERED: MAGNESIUM HYDROXIDE 30 ML UDC PO PRN (22:00)
[2023-12-19] MEDS: AZITHROMYCIN 500 MG in IV D5W 250 ML IV ONE (22:00)
[2023-12-19] MEDS ORDERED: ONDANSETRON HCL/PF 4 MG/2 ML VIAL IVP PRN (22:00)
[2023-12-19] MEDS ORDERED: TRAMADOL HCL 50 MG TABLET PO PRN (22:30)
[2023-12-19] MEDS ORDERED: DEXTROSE 50%-WATER 50 ML DISP.SYRIN IV PRN (22:30)
[2023-12-19] MEDS ORDERED: DIAZ5TAB4 PO (23:43)
[2023-12-19] MEDS ORDERED: QUET100T PO (23:43)
[2023-12-19] MEDS ORDERED: ZOLP5TAB8 PO (23:43)
[2023-12-19] MEDS ORDERED: QUET50TA PO (23:43)
[2023-12-19] MEDS: CEFTRIAXONE 1GM BAG (ER ONLY) 50 ML IV ONE (23:52)
[2023-12-19] MEDS: CEFTRIAXONE 1 G in IV D5W 50 ML IV SCH (23:56)
[2023-12-19] MEDS: LORAZEPAM INJ 2 MG/ML VIAL IM ONE (23:56)
[2023-12-20] VITALS (15 sets, daily range): BP systolic 118–154; BP diastolic 55–91; TEMP 97.3–98.1; O2SAT 94–100
[2023-12-20] MEDS: BLOOD SUGAR DIAGNOSTIC 1 EACH STRIP IN SCH (00:40)
[2023-12-20] MEDS: INSULIN REGULAR, HUMAN 100 UNIT/ML 3 ML VIAL SQ PRN (00:41)
[2023-12-20] MEDS: IPRATROPIUM NEB FS 0.5 MG/2.5 ML AMPUL.NEB HHN SCH (01:30)
[2023-12-20 05:36] LABS: BASOPHILS % (AUTO) 0.2 % (0.0-2.0); EOSINOPHILS # (AUTO) 0.4 K/uL (0.0-0.7); EOSINOPHILS % (AUTO) 3.7 % (0.0-6.0); HEMATOCRIT 33 % (33-45); HEMOGLOBIN 10.7 g/dL (11.5-14.8); LYMPHOCYTES # (AUTO) 2.4 K/uL (0.8-4.8); LYMPHOCYTES % (AUTO) 21.2 % (20.0-44.0); MEAN CORPUSCULAR HEMOGLOBIN 32 PG (26.0-33.0); MEAN CORPUSCULAR HGB CONC 32 g/dl (31.0-36.0); MEAN CORPUSCULAR VOLUME 98 fL (82-100); MONOCYTES # (AUTO) 1.7 K/uL (0.1-1.30); MONOCYTES % (AUTO) 14.8 % (2.0-12.0); NEUTROPHILS # (AUTO) 6.7 K/uL (1.8-8.9); NEUTROPHILS % (AUTO) 60.1 % (43.0-81.0); PLATELET COUNT (AUTO) 171 K/uL (150-450); RED BLOOD CELL COUNT(AUTO) 3.36 MIL/uL (4.0-5.2); RED CELL DISTRIBUTION WIDTH 15.1 % (11.5-15.0); WHITE BLOOD COUNT (AUTO) 11.2 K/uL (4.3-11.0)
[2023-12-20 05:46] LABS: CALCIUM, SERUM 8.7 mg/dL (8.5-10.1); CARBON DIOXIDE 21 mmol/L (21-32); CHLORIDE 107 mmol/L (98-107); CREATININE 2.1 mg/dL (0.6-1.3); GLUCOSE 104 mg/dL (74-106); MAGNESIUM 2.2 mg/dL (1.8-2.4); PHOSPHORUS 4.2 mg/dL (2.5-4.9); POTASSIUM 3.3 mmol/L (3.5-5.1); SODIUM SERUM 142 mmol/L (136-145); UREA NITROGEN, BLOOD 61 mg/dL (7-18)
[2023-12-20] MEDS: BUDESONIDE RESPULE INH 0.5 MG/2 ML AMPUL.NEB NEB SCH (07:05)
[2023-12-20] MEDS: LEVOTHYROXINE SODIUM 50 MCG TABLET PO SCH (07:30)
[2023-12-20] MEDS ORDERED: BLOOD SUGAR DIAGNOSTIC 1 EACH STRIP IN SCH (07:30)
[2023-12-20] MEDS ORDERED: LOSA25TA27 PO (08:12)
[2023-12-20] MEDS ORDERED: BACL10TA PO (08:12)
[2023-12-20] MEDS ORDERED: LEVO75TA PO (08:12)
[2023-12-20] MEDS ORDERED: BISA10SU11 RC (08:12)
[2023-12-20] MEDS ORDERED: FURO-144 PO (08:12)
[2023-12-20] MEDS ORDERED: MONT10TA22 PO (08:12)
[2023-12-20] MEDS: METOCLOPRAMIDE HCL 10 MG TABLET PO SCH (09:00)
[2023-12-20] MEDS: LINAGLIPTIN 5 MG TABLET PO SCH (09:00)
[2023-12-20] MEDS ORDERED: CELECOXIB 200 MG PO SCH (09:00)
[2023-12-20] MEDS ORDERED: Medication Not On Formulary EA (Sitagliptin Phosphate (Januvia) 100 MG) PO SCH (09:00)
[2023-12-20] MEDS ORDERED: TIOTROPIUM BROMIDE 6 CAP/BOX CAP.W.DEV IH SCH (09:00)
[2023-12-20] MEDS: RANOLAZINE 500 MG TAB.ER.12H PO SCH (09:00)
[2023-12-20] MEDS ORDERED: FLUTICASONE/SALMETEROL 1 DISK IH SCH (09:00)
[2023-12-20] MEDS: ASPIRIN EC 81 MG TABLET.DR PO SCH (09:00)
[2023-12-20] MEDS: AMLODIPINE BESYLATE 5 MG TABLET PO SCH (09:00)
[2023-12-20] MEDS ORDERED: Medication Not On Formulary EA (Linaclotide (Linzess) 290 MCG) PO SCH (09:00)
[2023-12-20] MEDS: METOPROLOL SUCCINATE 25 MG TAB.SR.24H PO SCH (09:00)
[2023-12-20] MEDS: FERROUS SULFATE (325 MG) 325 MG/TAB TABLET PO SCH (09:00)
[2023-12-20] MEDS: CELECOXIB 100 MG CAPSULE PO SCH (09:00)
[2023-12-20] MEDS: DIAZEPAM 5 MG TABLET PO SCH (09:00)
[2023-12-20] MEDS: LORATADINE 10 MG TABLET PO SCH (09:00)
[2023-12-20] MEDS: PANTOPRAZOLE 40 MG VIAL IV SCH (09:26)
[2023-12-20] MEDS: IV NS 0.9% 1,000 ML IV SCH (11:10)
[2023-12-20] MEDS: LORAZEPAM INJ 2 MG/ML VIAL IV ONE (12:35)
[2023-12-20] MEDS ORDERED: LORAZEPAM 4 MG/ML VIAL IV PRN (16:00)
[2023-12-20] MEDS: ICOSAPENT ETHYL 1 GM PO SCH (16:55)
[2023-12-20] MEDS: ZOLPIDEM TARTRATE 5 MG TABLET PO SCH (16:56)
[2023-12-20] MEDS: QUETIAPINE FUMARATE 100 MG TABLET PO SCH ×2 (16:56)
[2023-12-20] MEDS: LORAZEPAM INJ 2 MG/ML VIAL IV PRN (17:05)
[2023-12-20] MEDS ORDERED: QUETIAPINE FUMARATE 25 MG TABLET PO SCH (18:00)
[2023-12-20] MEDS: ALBUTEROL FS 2.5 MG/3 ML VIAL.NEB NEB SCH (20:16)
[2023-12-20] MEDS: OLANZAPINE 10 MG VIAL IM ONE (23:24)
[2023-12-21] VITALS (19 sets, daily range): BP systolic 133–154; BP diastolic 78–108; TEMP 97.2–99; O2SAT 96–100
[2023-12-21 07:49] LABS: BASOPHILS % (AUTO) 0.2 % (0.0-2.0); EOSINOPHILS % (AUTO) 0.4 % (0.0-6.0); HEMATOCRIT 32 % (33-45); HEMOGLOBIN 10.3 g/dL (11.5-14.8); LYMPHOCYTES # (AUTO) 1.2 K/uL (0.8-4.8); LYMPHOCYTES % (AUTO) 10.4 % (20.0-44.0); MEAN CORPUSCULAR HEMOGLOBIN 32 PG (26.0-33.0); MEAN CORPUSCULAR HGB CONC 32 g/dl (31.0-36.0); MEAN CORPUSCULAR VOLUME 99 fL (82-100); MONOCYTES # (AUTO) 1.7 K/uL (0.1-1.30); MONOCYTES % (AUTO) 15.2 % (2.0-12.0); NEUTROPHILS # (AUTO) 8.4 K/uL (1.8-8.9); NEUTROPHILS % (AUTO) 73.8 % (43.0-81.0); PLATELET COUNT (AUTO) 178 K/uL (150-450); RED BLOOD CELL COUNT(AUTO) 3.24 MIL/uL (4.0-5.2); RED CELL DISTRIBUTION WIDTH 15.1 % (11.5-15.0); WHITE BLOOD COUNT (AUTO) 11.4 K/uL (4.3-11.0)
[2023-12-21 08:25] LABS: ALANINE AMINOTRANSFERASE 22 U/L (12-78); ALBUMIN 2.8 g/dL (3.4-5.0); ALKALINE PHOSPHATASE 93 U/L (46-116); ASPARTATE AMINOTRANSFERASE 28 U/L (15-37); BILIRUBIN,TOTAL 0.5 mg/dL (0.2-1.0); CALCIUM, SERUM 9.1 mg/dL (8.5-10.1); CARBON DIOXIDE 16 mmol/L (21-32); CHLORIDE 108 mmol/L (98-107); CREATININE 1.5 mg/dL (0.6-1.3); GLUCOSE 119 mg/dL (74-106); MAGNESIUM 2.2 mg/dL (1.8-2.4); PHOSPHORUS 3.8 mg/dL (2.5-4.9); POTASSIUM 3.4 mmol/L (3.5-5.1); SODIUM SERUM 144 mmol/L (136-145); TOTAL PROTEIN, SERUM 6.6 g/dL (6.4-8.2); UREA NITROGEN, BLOOD 36 mg/dL (7-18)
[2023-12-21 08:27] LABS: CREATINE KINASE, TOTAL 224 U/L (26-192)
[2023-12-21] MEDS: POTASSIUM CHLORIDE 8 MEQ PO SCH (08:40)
[2023-12-21 09:38] LABS: ABG BASE EXCESS -4.6 mmol/L (-2.0-3.0); ABG OXYGEN SATURATION 96.5 % (94.0-98.0); ABG PCO2 16.2 mmHg (32.0-45.0); ABG PH 7.582 (7.350-7.450); ABG TOTAL HEMOGLOBIN 11.6 G/dL (12.0-16.0); COHb 0.2 % (0.5-1.5); MetHb 0.3 % (0.0-1.5); SITE, ABG RIGHT RADIAL
[2023-12-21] MEDS: POTASSIUM CL. PREMIX PERIPHER. 50 ML IV SCH (11:04)
[2023-12-21] MEDS: OLANZAPINE 10 MG VIAL IM ONE (20:15)
[2023-12-22] VITALS (15 sets, daily range): BP systolic 116–139; BP diastolic 55–78; TEMP 98.2–98.9; O2SAT 97–100
[2023-12-22] MEDS: MORPHINE SULFATE INJ 2 MG/ML DISP.SYRIN IV PRN (03:41)
[2023-12-22] MEDS: IV NS 0.9% 1,000 ML IV PRN (04:39)
[2023-12-22 08:34] LABS: CALCIUM, SERUM 9.2 mg/dL (8.5-10.1); CARBON DIOXIDE 20 mmol/L (21-32); CHLORIDE 110 mmol/L (98-107); CREATININE 1.5 mg/dL (0.6-1.3); GLUCOSE 153 mg/dL (74-106); POTASSIUM 3.3 mmol/L (3.5-5.1); SODIUM SERUM 146 mmol/L (136-145); UREA NITROGEN, BLOOD 33 mg/dL (7-18)
[2023-12-22 08:44] LABS: PHOSPHORUS 2.8 mg/dL (2.5-4.9)
[2023-12-22 08:46] LABS: BASOPHILS % (AUTO) 0.4 % (0.0-2.0); EOSINOPHILS # (AUTO) 0.1 K/uL (0.0-0.7); EOSINOPHILS % (AUTO) 0.9 % (0.0-6.0); HEMATOCRIT 31 % (33-45); HEMOGLOBIN 10.5 g/dL (11.5-14.8); LYMPHOCYTES # (AUTO) 1.7 K/uL (0.8-4.8); LYMPHOCYTES % (AUTO) 15.1 % (20.0-44.0); MEAN CORPUSCULAR HEMOGLOBIN 32 PG (26.0-33.0); MEAN CORPUSCULAR HGB CONC 33 g/dl (31.0-36.0); MEAN CORPUSCULAR VOLUME 95 fL (82-100); MONOCYTES # (AUTO) 1.2 K/uL (0.1-1.30); MONOCYTES % (AUTO) 11.1 % (2.0-12.0); NEUTROPHILS % (AUTO) 72.5 % (43.0-81.0); PLATELET COUNT (AUTO) 203 K/uL (150-450); RED CELL DISTRIBUTION WIDTH 13.9 % (11.5-15.0)
[2023-12-22] MEDS: POTASSIUM CL. PREMIX PERIPHER. 50 ML IV SCH (10:05)
[2023-12-23] VITALS (10 sets, daily range): BP systolic 126–134; BP diastolic 64–68; TEMP 97.7–98.1; O2SAT 96–100
[2023-12-23 01:10] LABS: PTH, INTACT 23 pg/mL (15-65)
[2023-12-23 06:48] LABS: BASOPHILS % (AUTO) 0.5 % (0.0-2.0); EOSINOPHILS # (AUTO) 0.6 K/uL (0.0-0.7); EOSINOPHILS % (AUTO) 5.9 % (0.0-6.0); HEMATOCRIT 31 % (33-45); HEMOGLOBIN 10.3 g/dL (11.5-14.8); LYMPHOCYTES # (AUTO) 2.1 K/uL (0.8-4.8); LYMPHOCYTES % (AUTO) 20.9 % (20.0-44.0); MEAN CORPUSCULAR HEMOGLOBIN 32 PG (26.0-33.0); MEAN CORPUSCULAR HGB CONC 34 g/dl (31.0-36.0); MEAN CORPUSCULAR VOLUME 96 fL (82-100); MONOCYTES # (AUTO) 1.1 K/uL (0.1-1.30); MONOCYTES % (AUTO) 10.9 % (2.0-12.0); NEUTROPHILS # (AUTO) 6.2 K/uL (1.8-8.9); NEUTROPHILS % (AUTO) 61.8 % (43.0-81.0); PLATELET COUNT (AUTO) 183 K/uL (150-450); RED CELL DISTRIBUTION WIDTH 14.1 % (11.5-15.0); WHITE BLOOD COUNT (AUTO) 9.9 K/uL (4.3-11.0)
[2023-12-23 07:49] LABS: CARBON DIOXIDE 20 mmol/L (21-32); CHLORIDE 112 mmol/L (98-107); CREATININE 1.4 mg/dL (0.6-1.3); GLUCOSE 134 mg/dL (74-106); MAGNESIUM 1.9 mg/dL (1.8-2.4); PHOSPHORUS 3.9 mg/dL (2.5-4.9); POTASSIUM 3.7 mmol/L (3.5-5.1); SODIUM SERUM 145 mmol/L (136-145); UREA NITROGEN, BLOOD 26 mg/dL (7-18)
[2023-12-23] MEDS ORDERED: POTASSIUM CHLORIDE 20 MEQ TAB.PRT.SR PO ONE (08:00)
[2023-12-23] MEDS: PANTOPRAZOLE 40 MG TABLET.DR PO SCH (09:46)
[2023-12-23 10:08] LABS: *SPE ALBUMIN 3.1 g/dL (2.9-4.4); *SPE ALPHA-1-GLOBULIN 0.3 g/dL (0.0-0.4); *SPE M-SPIKE Not Observed g/dL (Not Observed); *SPE PROTEIN TOTAL 6.1 g/dL (6.0-8.5); *SPEGAMMA GLOBULIN 0.7 g/dL (0.4-1.8)
[2023-12-23] MEDS: ACETAMINOPHEN 325 MG TABLET PO PRN (14:04)
== END 2023-12-23 18:53 | DRG 682 ==
LOC: ER 19:24 → TELE1 22:20 → MEDSG1 12-20 05:59
PROVIDERS: ATTEND Internal Medicine
DX: N17.0 Acute kidney failure with tubular necrosis (principal); G93.41 Metabolic encephalopathy; N39.0 Urinary tract infection, site not specified; E44.0 Moderate protein-calorie malnutrition; I13.0 Hypertensive heart and chronic kidney disease with heart failure and stage 1 through stage 4 chronic kidney disease, or unspecified chronic kidney disease; F02.84 Dementia in other diseases classified elsewhere, unspecified severity, with anxiety; F01.54 Vascular dementia, unspecified severity, with anxiety; R64 Cachexia; N18.9 Chronic kidney disease, unspecified; I50.9 Heart failure, unspecified; Z66 Do not resuscitate; E78.5 Hyperlipidemia, unspecified; E11.22 Type 2 diabetes mellitus with diabetic chronic kidney disease; G20.A1 Parkinson's disease without dyskinesia, without mention of fluctuations; I25.10 Atherosclerotic heart disease of native coronary artery without angina pectoris; J45.909 Unspecified asthma, uncomplicated; K21.9 Gastro-esophageal reflux disease without esophagitis; M19.90 Unspecified osteoarthritis, unspecified site; M89.8X9 Other specified disorders of bone, unspecified site; E03.9 Hypothyroidism, unspecified; R62.7 Adult failure to thrive; Z88.0 Allergy status to penicillin; Z79.51 Long term (current) use of inhaled steroids; Z79.4 Long term (current) use of insulin; Z79.84 Long term (current) use of oral hypoglycemic drugs; Z79.82 Long term (current) use of aspirin; Z79.890 Hormone replacement therapy; E88.09 Other disorders of plasma-protein metabolism, not elsewhere classified; E87.6 Hypokalemia; Z79.899 Other long term (current) drug therapy; Z87.81 Personal history of (healed) traumatic fracture; F09 Unspecified mental disorder due to known physiological condition; E86.9 Volume depletion, unspecified; D63.8 Anemia in other chronic diseases classified elsewhere
CPT/HCPCS: 36415; 36600; 71045-TC; 76770-TC; 80048-TC; 80053-TC; 80076-TC; 81001; 82550-TC; 82803-TC; 82962-TC; 83605-TC; 83735-TC; 83970; 84100-TC; 84155; 84165; 84484-TC; 85025-TC; 85730-TC; 87040-TC; 87086-TC; 92526; 92611-TC; 93970-TC; 94760-TC; 94761-TC; 94799-TC; 97110-TC; 97116-TC; 97164; 97530-TC; A4223; G0378; J0456; J0696; J1815; J2060; J2270; J2470; J3480; J3490; J7030; J7050; J7060

== ENCOUNTER 2023-12-27 18:45 | Inpatient (IN) | payer MEDICARE, OTHER ==
[~2023-12-27] VITALS: Ht 152.4 cm; Wt 40.8 kg
[~2023-12-27 18:45] MED LIST changes: +BACL10TA PO; +BISA10SU11 RC; +DIAZ5TAB4 PO; +FURO-144 PO; -GLIM1TAB18 PO; -LEVO50TA8 PO; +LEVO75TA PO; -LINA290C PO; +LOSA25TA27 PO; -METO25TA4 PO; +MONT10TA22 PO; -ONDA4TAB11 PO; +QUET100T PO; +QUET50TA PO; -TIOT18CA3 IH; -TRAM50TA2 PO; +ZOLP5TAB8 PO
[2023-12-27 19:31] LABS: BASOPHILS # (AUTO) 0.1 K/uL (0.0-0.2); BASOPHILS % (AUTO) 0.2 % (0.0-2.0); EOSINOPHILS # (AUTO) 0.5 K/uL (0.0-0.7); EOSINOPHILS % (AUTO) 1.7 % (0.0-6.0); HEMATOCRIT 32 % (33-45); HEMOGLOBIN 9.9 g/dL (11.5-14.8); LYMPHOCYTES # (AUTO) 3.5 K/uL (0.8-4.8); MEAN CORPUSCULAR HEMOGLOBIN 31 PG (26.0-33.0); MEAN CORPUSCULAR HGB CONC 31 g/dl (31.0-36.0); MEAN CORPUSCULAR VOLUME 98 fL (82-100); MONOCYTES # (AUTO) 1.8 K/uL (0.1-1.30); MONOCYTES % (AUTO) 6.2 % (2.0-12.0); NEUTROPHILS # (AUTO) 23.6 K/uL (1.8-8.9); NEUTROPHILS % (AUTO) 79.9 % (43.0-81.0); PLATELET COUNT (AUTO) 229 K/uL (150-450); RED BLOOD CELL COUNT(AUTO) 3.23 MIL/uL (4.0-5.2); RED CELL DISTRIBUTION WIDTH 14.7 % (11.5-15.0); WHITE BLOOD COUNT (AUTO) 29.5 K/uL (4.3-11.0)
[2023-12-27 19:48] LABS: ALANINE AMINOTRANSFERASE 35 U/L (12-78); ALBUMIN 2.2 g/dL (3.4-5.0); ALKALINE PHOSPHATASE 76 U/L (46-116); ASPARTATE AMINOTRANSFERASE 19 U/L (15-37); BILIRUBIN,DIRECT 0.1 mg/dL (0.0-0.2); BILIRUBIN,TOTAL 0.3 mg/dL (0.2-1.0); CALCIUM, SERUM 8.4 mg/dL (8.5-10.1); CARBON DIOXIDE 19 mmol/L (21-32); CHLORIDE 104 mmol/L (98-107); CREATININE 1.7 mg/dL (0.6-1.3); GLUCOSE 187 mg/dL (74-106); POTASSIUM 4.7 mmol/L (3.5-5.1); SODIUM SERUM 135 mmol/L (136-145); TOTAL PROTEIN, SERUM 5.7 g/dL (6.4-8.2); UREA NITROGEN, BLOOD 45 mg/dL (7-18)
[2023-12-27 19:55] LABS: EOSINOPHILS % (MANUAL) 2 % (0-4); LYMPHOCYTES % (MANUAL) 11 % (16-48); MONOCYTES % (MANUAL) 2 % (0-11.0); NEUTROPHILS % (MANUAL) 85 (42-76)
[2023-12-27 19:56] LABS: PLATELET ESTIMATE ADEQUATE
[2023-12-27 19:57] LABS: ANISOCYTOSIS 1+
[2023-12-27] MEDS ORDERED: ONDANSETRON HCL/PF 4 MG/2 ML VIAL IVP PRN (22:00)
[2023-12-27] MEDS ORDERED: Z GUARD REMEDY 4 OZ OINT TP PRN (22:00)
[2023-12-27] MEDS ORDERED: IV D5/0.45 NACL 1,000 ML IV PRN (22:00)
[2023-12-27] MEDS ORDERED: ALBUTEROL FS 2.5 MG/3 ML VIAL.NEB NEB PRN (23:00)
[2023-12-28 01:50] VITALS: BP 119/102; TEMP 97.7; O2SAT 100
[2023-12-28 06:32] LABS: BASOPHILS % (AUTO) 0.2 % (0.0-2.0); EOSINOPHILS # (AUTO) 0.1 K/uL (0.0-0.7); EOSINOPHILS % (AUTO) 0.4 % (0.0-6.0); HEMATOCRIT 31 % (33-45); HEMOGLOBIN 10.2 g/dL (11.5-14.8); LYMPHOCYTES # (AUTO) 3.2 K/uL (0.8-4.8); LYMPHOCYTES % (AUTO) 11.1 % (20.0-44.0); MEAN CORPUSCULAR HEMOGLOBIN 31 PG (26.0-33.0); MEAN CORPUSCULAR HGB CONC 33 g/dl (31.0-36.0); MEAN CORPUSCULAR VOLUME 95 fL (82-100); MONOCYTES # (AUTO) 1.6 K/uL (0.1-1.30); MONOCYTES % (AUTO) 5.4 % (2.0-12.0); NEUTROPHILS # (AUTO) 24.1 K/uL (1.8-8.9); NEUTROPHILS % (AUTO) 82.9 % (43.0-81.0); PLATELET COUNT (AUTO) 268 K/uL (150-450); RED BLOOD CELL COUNT(AUTO) 3.26 MIL/uL (4.0-5.2); RED CELL DISTRIBUTION WIDTH 14.3 % (11.5-15.0)
[2023-12-28 07:00] VITALS: BP 106/74; TEMP 98.6; O2SAT 100
[2023-12-28 07:02] LABS: CALCIUM, SERUM 9.1 mg/dL (8.5-10.1); CARBON DIOXIDE 18 mmol/L (21-32); CHLORIDE 105 mmol/L (98-107); CREATININE 1.7 mg/dL (0.6-1.3); GLUCOSE 190 mg/dL (74-106); PHOSPHORUS 3.7 mg/dL (2.5-4.9); POTASSIUM 4.4 mmol/L (3.5-5.1); SODIUM SERUM 137 mmol/L (136-145); UREA NITROGEN, BLOOD 46 mg/dL (7-18)
[2023-12-28 07:43] LABS: EOSINOPHILS % (MANUAL) 1 % (0-4); LYMPHOCYTES % (MANUAL) 4 % (16-48); MONOCYTES % (MANUAL) 7 % (0-11.0); NEUTROPHILS % (MANUAL) 88 (42-76); PLATELET ESTIMATE ADEQUATE
[2023-12-28] MEDS: PANTOPRAZOLE 40 MG VIAL IV SCH (08:13)
[2023-12-28] MEDS ORDERED: ZINC56.713 TP (08:42)
[2023-12-28] MEDS ORDERED: ASCO500T10 PO (08:42)
[2023-12-28] MEDS ORDERED: INSU100V3 SQ (08:42)
[2023-12-28] MEDS ORDERED: MULT-594 PO (08:42)
[2023-12-28] MEDS ORDERED: POVI1MED TP (08:42)
[2023-12-28] MEDS ORDERED: TEMA7.5C PO (08:42)
[2023-12-28] MEDS ORDERED: ZINC220C6 PO (08:42)
[2023-12-28] MEDS ORDERED: ONDA4TAB11 PO (08:42)
[2023-12-28] MEDS ORDERED: QUET25TA PO (08:42)
[2023-12-28] MEDS: MORPHINE SULFATE INJ 2 MG/ML DISP.SYRIN IV PRN (09:49)
[2023-12-28] MEDS: IV D5/ 0.9% NACL 1,000 ML IV PRN (12:40)
[2023-12-28] MEDS ORDERED: MORPHINE SULFATE INJ 2 MG/ML DISP.SYRIN IV PRN (13:00)
[2023-12-28] MEDS: CEFEPIME 1 GM in IV D5W 50 ML IV SCH (14:05)
[2023-12-28] MEDS: VANCOMYCIN 750 MG in IV D5W 250 ML IV ONE (15:07)
[2023-12-28 16:00] VITALS: BP 121/73; TEMP 97.3; O2SAT 100
[2023-12-28 23:25] VITALS: BP 111/82; TEMP 97.9; O2SAT 100
[2023-12-29 08:00] VITALS: BP 112/60; TEMP 99; O2SAT 100
[2023-12-29 09:14] LABS: BASOPHILS # (AUTO) 0.1 K/uL (0.0-0.2); BASOPHILS % (AUTO) 0.6 % (0.0-2.0); EOSINOPHILS # (AUTO) 0.2 K/uL (0.0-0.7); EOSINOPHILS % (AUTO) 1.6 % (0.0-6.0); HEMATOCRIT 24 % (33-45); HEMOGLOBIN 7.9 g/dL (11.5-14.8); LYMPHOCYTES # (AUTO) 2.1 K/uL (0.8-4.8); LYMPHOCYTES % (AUTO) 16.2 % (20.0-44.0); MEAN CORPUSCULAR HEMOGLOBIN 32 PG (26.0-33.0); MEAN CORPUSCULAR HGB CONC 33 g/dl (31.0-36.0); MEAN CORPUSCULAR VOLUME 98 fL (82-100); MONOCYTES # (AUTO) 1.3 K/uL (0.1-1.30); MONOCYTES % (AUTO) 10.1 % (2.0-12.0); NEUTROPHILS # (AUTO) 9.4 K/uL (1.8-8.9); NEUTROPHILS % (AUTO) 71.5 % (43.0-81.0); PLATELET COUNT (AUTO) 178 K/uL (150-450); RED BLOOD CELL COUNT(AUTO) 2.48 MIL/uL (4.0-5.2); RED CELL DISTRIBUTION WIDTH 14.6 % (11.5-15.0); WHITE BLOOD COUNT (AUTO) 13.1 K/uL (4.3-11.0)
[2023-12-29] MEDS: LORAZEPAM INJ 2 MG/ML VIAL IV PRN (09:44)
[2023-12-29 10:49] LABS: CREATININE, URINE 70.8 MG/DL (30.0-125.0); URINE TOTAL PROTEIN 47.2 mg/dL (0-11.9)
[2023-12-29 10:50] LABS: APPEARANCE,URINE CLEAR (CLEAR); BILIRUBIN,URINE NEGATIVE (NEGATIVE); BLOOD, URINE NEGATIVE Ery/uL (NEGATIVE); COLOR,URINE YELLOW (YELLOW); KETONES,URINE NEGATIVE (NEGATIVE); LEUKOCYTE ESTERASE ,URINE NEGATIVE (NEGATIVE); NITRITE, URINE NEGATIVE (NEGATIVE); PROTEIN,URINE NEGATIVE (NEGATIVE); UGLUCOSE NEGATIVE (NEGATIVE); UROBILINOGEN,URINE 0.2 EU/dL (0.2)
[2023-12-29 10:57] LABS: ALANINE AMINOTRANSFERASE 26 U/L (12-78); ALBUMIN 2.1 g/dL (3.4-5.0); ALKALINE PHOSPHATASE 64 U/L (46-116); ASPARTATE AMINOTRANSFERASE 22 U/L (15-37); BILIRUBIN,TOTAL 0.3 mg/dL (0.2-1.0); CALCIUM, SERUM 8.4 mg/dL (8.5-10.1); CARBON DIOXIDE 25 mmol/L (21-32); CHLORIDE 110 mmol/L (98-107); CREATININE 1.2 mg/dL (0.6-1.3); GLUCOSE 165 mg/dL (74-106); MAGNESIUM 1.9 mg/dL (1.8-2.4); PHOSPHORUS 3.9 mg/dL (2.5-4.9); SODIUM SERUM 141 mmol/L (136-145); TOTAL PROTEIN, SERUM 5.3 g/dL (6.4-8.2); UREA NITROGEN, BLOOD 32 mg/dL (7-18)
[2023-12-29 13:40] LABS: EOSINOPHIL,URINE None Seen
[2023-12-29] MEDS: VANCOMYCIN 500 MG in IV D5W 100ml IV SCH (14:09)
[2023-12-29 16:00] VITALS: BP 136/80; TEMP 99.7; O2SAT 98
[2023-12-29 20:00] VITALS: BP 120/55; TEMP 99.1; O2SAT 100
[2023-12-30 03:13] VITALS: BP 129/93; TEMP 98.6; O2SAT 100
[2023-12-30 03:28] VITALS: BP 128/89; TEMP 98.6; O2SAT 100
[2023-12-30 03:43] VITALS: BP 124/77; TEMP 98.7; O2SAT 100
[2023-12-30 04:13] VITALS: BP 124/92; TEMP 98.9; O2SAT 100
[2023-12-30 07:00] VITALS: BP 152/130; TEMP 99.1; O2SAT 100
[2023-12-30 07:01] LABS: CARBON DIOXIDE 17 mmol/L (21-32); CHLORIDE 110 mmol/L (98-107); CREATININE 1.1 mg/dL (0.6-1.3); GLUCOSE 161 mg/dL (74-106); POTASSIUM 3.3 mmol/L (3.5-5.1); SODIUM SERUM 141 mmol/L (136-145); UREA NITROGEN, BLOOD 21 mg/dL (7-18)
[2023-12-30] MEDS: LORAZEPAM INJ 2 MG/ML VIAL IM PRN (09:00)
[2023-12-30] MEDS ORDERED: QUETIAPINE FUMARATE 25 MG TABLET PO PRN (11:00)
[2023-12-30] MEDS ORDERED: DEXTROSE 50%-WATER 50 ML DISP.SYRIN IV PRN (11:00)
[2023-12-30] MEDS: POTASSIUM CL. PREMIX PERIPHER. 50 ML IV SCH (11:09)
[2023-12-30] MEDS: BLOOD SUGAR DIAGNOSTIC 1 EACH STRIP IN SCH (11:59)
[2023-12-30] MEDS: INSULIN REGULAR, HUMAN 100 UNIT/ML 3 ML VIAL SQ PRN (12:01)
[2023-12-30] MEDS ORDERED: Blood Sugar Diagnostic IN (13:30)
[2023-12-30] MEDS ORDERED: BUDE0.5A NEB (13:30)
[2023-12-30] MEDS ORDERED: ALBUT2 NEB ×2 (13:30)
[2023-12-30] MEDS ORDERED: VANC500F2 IV (13:30)
[2023-12-30] MEDS ORDERED: ALBUTEROL FS 2.5 MG/3 ML VIAL.NEB NEB SCH (13:30)
[2023-12-30] MEDS ORDERED: FERROUS SULFATE (325 MG) 325 MG/TAB TABLET PO SCH (17:00)
[2023-12-30] MEDS ORDERED: FLUTICASONE/SALMETEROL 1 DISK IH SCH (17:00)
[2023-12-30] MEDS ORDERED: AMLODIPINE BESYLATE 5 MG TABLET PO SCH (17:00)
[2023-12-30] MEDS ORDERED: BACLOFEN (10 MG) 10 MG TABLET PO SCH (17:00)
[2023-12-30] MEDS ORDERED: Medication Not On Formulary EA (Icosapent Ethyl (Vascepa) 1 GM) PO SCH (17:00)
[2023-12-30] MEDS ORDERED: CELECOXIB 200 MG PO SCH (17:00)
[2023-12-30] MEDS ORDERED: MONTELUKAST SODIUM (10MG) 10 MG TABLET PO SCH (18:00)
[2023-12-30] MEDS ORDERED: BUDESONIDE RESPULE INH 0.5 MG/2 ML AMPUL.NEB NEB SCH (19:30)
[2023-12-30] MEDS ORDERED: RANOLAZINE 500 MG TAB.ER.12H PO SCH (21:00)
[2023-12-31] MEDS ORDERED: LEVOTHYROXINE SODIUM 75 MCG TABLET PO SCH (07:30)
[2023-12-31] MEDS ORDERED: ASPIRIN EC 81 MG TABLET.DR PO SCH (09:00)
[2023-12-31] MEDS ORDERED: LORATADINE 10 MG TABLET PO SCH (09:00)
[2023-12-31] MEDS ORDERED: LOSARTAN POTASSIUM 25 MG TABLET PO SCH (09:00)
[2023-12-31] MEDS ORDERED: LINAGLIPTIN 5 MG TABLET PO SCH (09:00)
[2023-12-31] MEDS ORDERED: ATORVASTATIN 40 MG TABLET PO SCH (09:00)
[2023-12-31] MEDS ORDERED: ZINC SULFATE 220 MG CAPSULE PO SCH (09:00)
[2023-12-31] MEDS ORDERED: MULTIVITAMINS,THERAGRAN 1 UDTAB TABLET PO SCH (09:00)
[2023-12-31] MEDS ORDERED: ASCORBIC ACID 500 MG TABLET PO SCH (09:00)
== END 2023-12-30 18:10 | DRG 871 ==
LOC: ER 18:50 → MED 21:50
PROVIDERS: ADMIT Nurse Practitioner Family; ATTEND Nurse Practitioner Acute Care
DX: A41.9 Sepsis, unspecified organism (principal); E43 Unspecified severe protein-calorie malnutrition; J69.0 Pneumonitis due to inhalation of food and vomit; N17.0 Acute kidney failure with tubular necrosis; G93.41 Metabolic encephalopathy; E44.0 Moderate protein-calorie malnutrition; I13.0 Hypertensive heart and chronic kidney disease with heart failure and stage 1 through stage 4 chronic kidney disease, or unspecified chronic kidney disease; J90 Pleural effusion, not elsewhere classified; E87.1 Hypo-osmolality and hyponatremia; R64 Cachexia; J98.11 Atelectasis; K22.2 Esophageal obstruction; K44.9 Diaphragmatic hernia without obstruction or gangrene; Z66 Do not resuscitate; Z87.440 Personal history of urinary (tract) infections; Z79.4 Long term (current) use of insulin; E11.22 Type 2 diabetes mellitus with diabetic chronic kidney disease; G20.A1 Parkinson's disease without dyskinesia, without mention of fluctuations; F02.80 Dementia in other diseases classified elsewhere, unspecified severity, without behavioral disturbance, psychotic disturbance, mood disturbance, and anxiety; N18.9 Chronic kidney disease, unspecified; Z51.5 Encounter for palliative care; E78.5 Hyperlipidemia, unspecified; E03.9 Hypothyroidism, unspecified; Z88.0 Allergy status to penicillin; Z79.890 Hormone replacement therapy; Z79.51 Long term (current) use of inhaled steroids; Z79.82 Long term (current) use of aspirin; Z79.899 Other long term (current) drug therapy; Z79.84 Long term (current) use of oral hypoglycemic drugs; I25.10 Atherosclerotic heart disease of native coronary artery without angina pectoris; I50.9 Heart failure, unspecified; D63.8 Anemia in other chronic diseases classified elsewhere; E88.09 Other disorders of plasma-protein metabolism, not elsewhere classified; M19.90 Unspecified osteoarthritis, unspecified site; D50.9 Iron deficiency anemia, unspecified; R62.7 Adult failure to thrive
CPT/HCPCS: 36415; 70490-TC; 71045-TC; 71250-TC; 80048-TC; 80053-TC; 80076-TC; 82570-TC; 82962-TC; 83735-TC; 84100-TC; 84300-TC; 84484-TC; 85025-TC; 87040-TC; 87086-TC; A4223; G0378; J0692; J1815; J2060; J2270; J2470; J3370; J3371; J3480; J7042; J7050; J7060